=== PATIENT | male | born 1955 | race Caucasian/White ===

== ENCOUNTER 2016-11-11 02:28 | Inpatient (IN) | payer OTHER, MEDICARE ==
[2016-11-11 05:08] LABS: ABSOLUTE BASOPHILS # (AUTO) 0.1 10^3/uL (0.0-0.2); ABSOLUTE EOSINOPHILS # (AUTO) 0.1 10^3/uL (0.0-0.6); ABSOLUTE LYMPHOCYTES (AUTO) 0.6 10^3/uL (0.5-4.7); ABSOLUTE MONOCYTES (AUTO) 0.5 10^3/uL (0.1-1.4); ABSOLUTE NEUT (AUTO) 3.9 10^3/uL (1.7-8.2); BASOPHILS % (AUTO) 1.4 % (0-2); EOSINOPHILS % (AUTO) 2.5 % (0-6); HEMATOCRIT 40.4 % (37.9-51.0); HEMOGLOBIN 14.1 g/dL (13.5-17.0); HGB HCT DIFFERENCE 1.9; LYMPHOCYTES % (AUTO) 12.3 % (13-45); MEAN CORPUSCULAR HEMOGLOBIN 32.7 pg (27.0-33.4); MEAN CORPUSCULAR HGB CONC 34.9 g/dL (32.0-36.0); MEAN CORPUSCULAR VOLUME 94 fl (80-97); MONOCYTES % (AUTO) 9.7 % (3-13); RED BLOOD COUNT 4.31 10^6/uL (4.35-5.55); SEGMENTED NEUTROPHILS % (AUTO) 74.1 % (42-78); WHITE BLOOD COUNT 5.3 10^3/uL (4.0-10.5)
[2016-11-11 05:09] LABS: PROTHROMBIN TIME 16.7 SEC (11.4-15.4)
[2016-11-11 05:11] LABS: APPEARANCE,URINE SLIGHTLY-CLOUDY; BILIRUBIN,URINE NEGATIVE (NEGATIVE); GLUCOSE, URINE NEGATIVE (NEGATIVE); KETONES,URINE NEGATIVE (NEGATIVE); LEUKOCYTE ESTERASE,URINE NEGATIVE (NEGATIVE); NITRITE,URINE NEGATIVE (NEGATIVE); PROTEIN,URINE >=500 mg/dL (NEGATIVE); URINE SPECIFIC GRAVITY 1.025
--- NOTE | 2016-11-11 05:20 | ER Document Report ---
Doctor's Note Notes: 11/11/16 05:19 I performed a quick triage evaluation the patient. Patient presents with complaint of edema in his legs, confusion, some pain in his side. Patient was resubmitted for these complaints because of end-stage liver disease and altered mental status. At that time patient was given thiamine and Lasix. He was starting to improve. Patient and signed out AGAINST MEDICAL ADVICE. Patient said he did drink alcohol again when he first got home. Is not drinking 2 days. No fevers. No other complaints at this time. Patient says that his heart started racing this morning and to start a more confused and therefore came back to the ER. On exam patient has a lot of edema in his lower extremities which she says has increased since leaving the hospital. Patient obviously has some confusion about exact dates. His family members at bedside is able to clarify certain things and also says that his confusion has worsened. She says it's been no recent trauma since leaving the hospital. No recent falls or injuries. Nothing since leaving the hospital. At this time I' ll order ammonia level, baseline labs, give him some thiamine, given some Lasix , and placement cardiac tech until the morning ER physician can come in and take over the case.
[2016-11-11 05:22] LABS: ALANINE AMINOTRANSFERASE 73 U/L (21-72); ALBUMIN 2.3 g/dL (3.5-5.0); ALKALINE PHOSPHATASE 236 U/L (38-126); ANION GAP 8 (5-19); ASPARTATE AMINO TRANSFERASE 129 U/L (17-59); BILIRUBIN,TOTAL 1.6 mg/dL (0.2-1.3); BLOOD UREA NITROGEN 18 mg/dL (7-20); CARBON DIOXIDE 26 mmol/L (22-30); CHLORIDE 107 mmol/L (98-107); CREATININE RESULT 0.55 mg/dL (0.52-1.25); GLUCOSE 106 mg/dL (75-110); POTASSIUM 3.6 mmol/L (3.6-5.0); SODIUM 141.4 mmol/L (137-145); TOTAL PROTEIN 7.2 g/dL (6.3-8.2)
[2016-11-11] MEDS ORDERED: FUROSEMIDE INJ/PF 20 MG/2 ML SDV IV ONE (05:24)
[2016-11-11] MEDS ORDERED: FOLIC ACID INJ 5 MG/1 ML 10 ML VIAL IV ONE (05:24)
[2016-11-11] MEDS ORDERED: THIAMINE HCL 100 MG in NORMAL SALINE 50 ML IV ONE (05:24)
[2016-11-11 05:25] LABS: ALCOHOL < 10 mg/dL (NONE DETECTED)
[2016-11-11] MEDS ORDERED: FENTANYL CITRATE INJ/PF 100 MCG/2 ML AMPUL IV ONE (05:25)
[2016-11-11] MEDS ORDERED: MULTIVITAMIN TABLET PO ONE (05:25)
[2016-11-11] MEDS ORDERED: THIAMINE HCL INJ 200 MG/2 ML VIAL ONE (05:45)
[2016-11-11 05:47] LABS: WBC,URINE 0-1 /HPF
[2016-11-11 05:48] LABS: BACTERIA,URINE 1+ /HPF
[2016-11-11] MEDS ORDERED: DILTIAZEM HCL/D5W 125 ML IV PRN (06:05)
[2016-11-11] MEDS ORDERED: DILTIAZEM HCL INJ 25 MG/5 ML VIAL IV ONE (06:05)
--- NOTE | 2016-11-11 07:12 | ER Document Report ---
ED General - General Chief Complaint: Abdominal Pain Stated Complaint: ABDOMINAL PAIN Mode of Arrival: Ambulatory Information source: Patient Notes: 61-year-old male history of hepatitis C congestive heart failure Severino bar who is just here and requests to be discharged from the hospital presents with complaints of further swelling confusion. Patient denies any fevers TRAVEL OUTSIDE OF THE [place] IN LAST 30 DAYS: No - HPI Onset: Other Onset/Duration: Persistent Quality of pain: Achy Severity: Mild Pain Level: 1 Associated symptoms: Other Exacerbated by: Denies Relieved by: Denies Similar symptoms previously: Yes Recently seen / treated by doctor: Yes - Related Data Allergies/Adverse Reactions: tramadol Allergy (Verified 11/07/16 04:46) Past Medical History - General Information source: Patient - Social History Smoking Status: Current Some Day Smoker Cigarette use (# per day): No Chew tobacco use (# tins/day): Yes Smoking Education Provided: No Frequency of alcohol use: None Drug Abuse: None Family History: CAD - Father, Malignancy - Mother Patient has suicidal ideation: No Patient has homicidal ideation: No - Past Medical History Cardiac Medical History: Reports: Hx Atrial Fibrillation Pulmonary Medical History: Reports: Hx Asthma, Hx COPD GI Medical History: Reports: Hx Cirrhosis, Hx Hepatitis - Hepatitis C Traumatic Medical History: Reports: Hx Fractures Infectious Medical History: Reports: Hx Hepatitis - Hepatitis C Past Surgical History: Reports: Hx Cholecystectomy, Hx Orthopedic Surgery - left foot/leg 2007 - Immunizations Immunizations up to date: Yes Hx Diphtheria, Pertussis, Tetanus Vaccination: No - unk Review of Systems - Review of Systems Notes: REVIEW OF SYSTEMS: CONSTITUTIONAL : Denies fever, chills, or sweats. Denies recent illness. EENT: Denies eye, ear, throat, or mouth pain or symptoms. Denies nasal or sinus congestion or discharge. Denies throat, tongue, or mouth swelling or difficulty swallowing. CARDIOVASCULAR: Admits shortness of breath RESPIRATORY: Denies cough, cold, or chest congestion. Denies shortness of breath, difficulty breathing, or wheezing. GASTROINTESTINAL: Admits to abdominal distention GENITOURINARY: Denies difficulty urinating, painful urination, burning, frequency, blood in urine, or discharge. MUSCULOSKELETAL: Admits to peripheral edema SKIN: Denies rash, lesions or sores. HEMATOLOGIC : Denies easy bruising or bleeding. LYMPHATIC: Denies swollen, enlarged glands. NEUROLOGICAL: Admits confusion PSYCHIATRIC: Denies anxiety or stress. Denies depression, suicidal ideation, or homicidal ideation. ALL OTHER SYSTEMS REVIEWED AND NEGATIVE. Dictation was performed using Y[employer] voice recognition software PHYSICAL EXAMINATION: GENERAL: Well-appearing, well-nourished and in no acute distress. HEAD: Atraumatic, normocephalic. EYES: Pupils equal round and reactive to light, extraocular movements intact, sclera anicteric, conjunctiva are normal. ENT: Nares patent, oropharynx clear without exudates. Moist mucous membranes. NECK: Normal range of motion, supple without lymphadenopathy LUNGS: Breath sounds clear to auscultation bilaterally and equal. No wheezes rales or rhonchi. HEART: Regular rate and rhythm without murmurs ABDOMEN: Soft, nontender, mildly distended abdomen. No guarding, no rebound. No masses appreciated. Musculoskeletal: +2 pitting edema bilateral lower extremities NEUROLOGICAL: Cranial nerves grossly intact. Normal speech, normal gait. Normal sensory, motor exams PSYCH: Normal mood, normal affect. SKIN: Warm, Dry, normal turgor, no rashes or lesions noted. Physical Exam - Vital signs Vitals: Temp Pulse Resp BP Pulse Ox 98.1 F 44 L 14 166/94 H 96 11/11/16 03:01 11/11/16 03:01 11/11/16 03:01 11/11/16 03:01 11/11/16 03:01 Course - Re-evaluation Re-evalutation: 11/11/16 07:14 I believe patient is having exacerbation of his congestive heart failure and ascites, he is noted to be in A. fib RVR and was given Cardizem. 11/11/16 08:21 Patient's lab work notes no acute abnormalities, chronic CHF and A. fib noted. Patient otherwise stable for admission on Cardizem drip - Vital Signs Vital signs: Temp Pulse Resp BP Pulse Ox 97.5 F 44 L 15 145/83 H 96 11/11/16 07:37 11/11/16 03:01 11/11/16 07:01 11/11/16 07:01 11/11/16 07:01 - Laboratory Result Diagrams: 11/11/16 04:46 11/11/16 04:46 Laboratory results interpreted by me: 11/11/16 11/11/16 11/11/16 04:46 04:46 04:46 RBC 4.31 L Plt Count 103 L Lymphocytes % 12.3 L PT 16.7 H Calcium 8.0 L Total Bilirubin 1.6 H AST 129 H ALT 73 H Alkaline Phosphatase 236 H Albumin 2.3 L Urine Protein Urine Blood Urine Urobilinogen Urine Ascorbic Acid 11/11/16 04:46 RBC Plt Count Lymphocytes % PT Calcium Total Bilirubin AST ALT Alkaline Phosphatase Albumin Urine Protein >=500 H Urine Blood LARGE H Urine Urobilinogen 2.0 H Urine Ascorbic Acid 40 H - Diagnostic Test Radiology reviewed: Image reviewed, Reports reviewed - EKG Interpretation by Ok EKG shows normal: Sinus rhythm, Intervals, QRS Complexes Rate: Tachycardia Rhythm: A.Fib Critical Care Note - Critical Care Note Total time excluding time spent on procedures (mins): 40 Comments: 40 minutes of critical care time spent in direct contact evaluating and reevaluating the patient, treating symptoms, reviewing labs and studies and speaking with family and consultants excluding any procedures Discharge - Discharge Clinical Impression: Atrial fibrillation with RVR, Alcohol abuse, Encephalopathy A-fib Qualifiers: Atrial fibrillation type: chronic Qualified Code(s): I48.2 - Chronic atrial fibrillation COPD (chronic obstructive pulmonary disease) Qualifiers: COPD type: COPD with acute exacerbation Qualified Code(s): J44.1 - Chronic obstructive pulmonary disease with (acute) exacerbation Cirrhosis Qualifiers: Hepatic cirrhosis type: alcoholic cirrhosis Ascites presence: with ascites Qualified Code(s): K70.31 - Alcoholic cirrhosis of liver with ascites Hepatitis C Qualifiers: Viral hepatitis chronicity: chronic Hepatic coma status: without hepatic coma Qualified Code(s): B18.2 - Chronic viral hepatitis C CHF (congestive heart failure) Qualifiers: Congestive heart failure type: systolic Congestive heart failure chronicity: acute on chronic Qualified Code(s): I50.23 - Acute on chronic systolic ( congestive) heart failure Condition: Stable Disposition: ADMITTED INPATIENT Admitting Provider: Hospitalist Unit Admitted: [facility]
[2016-11-11] MEDS ORDERED: POTASSIUM CHLORIDE 10 MEQ TABLET.SA PO ONE (09:15)
[2016-11-11] MEDS ORDERED: METOPROLOL SUCCINATE 25 MG TAB.SR.24H PO ONE (09:17)
[2016-11-11] MEDS ORDERED: DIAZEPAM 5 MG TABLET PO ONE (09:18)
[2016-11-11] MEDS ORDERED: IPRATROPIUM/ALBUTEROL 0.5-2.5 MG/3 ML AMPUL NEB PRN (09:20)
[2016-11-11] MEDS ORDERED: ONDANSETRON 4 MG TAB.RAPDIS PO PRN (09:20)
[2016-11-11] MEDS ORDERED: DIAZEPAM 5 MG TABLET ONE (09:29)
[2016-11-11] MEDS ORDERED: FUROSEMIDE INJ/PF 40 MG/4 ML SDV IV ONE (09:40)
[2016-11-11] MEDS ORDERED: FOLIC ACID 1 MG TABLET PO ONE (09:40)
[2016-11-11] MEDS ORDERED: THIAMINE HCL 100 MG TABLET PO ONE (09:40)
[2016-11-11] MEDS ORDERED: NICOTINE 14 MG/24 HR PATCH.TD24 TD PRN (09:48)
[2016-11-11] MEDS ORDERED: ENALAPRILAT DIHYDRATE INJ/PF 1.25 MG/1 ML SDV IV PRN (09:50)
--- NOTE | 2016-11-11 09:53 | PDOC H&P ---
History of Present Illness Admission Date/PCP: 11/11/16 08:34 History of Present Illness: YARI TAMAYO is a 61 year old male with a known history of hepatitis C, and alcoholic cirrhosis who was recently discharged on the . Patient believes he left AGAINST MEDICAL ADVICE. Patient reports that he's had increasing leg swelling since discharge and that his last drink was on the first. Patient reports last night he began having some palpitations and upon reading the symptoms of liver failure and heart failure decided to come to the emergency department. Patient normally drinks a 12 pack or more per day and occasional liquor. Patient also was recently hospitalized in [facility] for pneumococcal pneumonia. He reports he still has antibiotics left. Patient is found to be in A. fib with RVR with heart rate in the 180s. He is referred to hospital service for A. fib with RVR and acute on chronic congestive heart failure. Past Medical History Cardiac Medical History: Reports: Atrial Fibrillation Pulmonary Medical History: Reports: Asthma, Chronic Obstructive Pulmonary Disease (COPD) GI Medical History: Reports: Cirrhosis, Hepatitis - Hepatitis C Infectious Medical History: Reports: Hepatitis C Past Surgical History Past Surgical History: Reports: Cholecystectomy, Orthopedic Surgery - left foot/ leg 2008 Social History Smoking Status: Current Some Day Smoker Frequency of Alcohol Use: Heavy Hx Recreational Drug Use: No Hx Prescription Drug Abuse: No - Advance Directive Resuscitation Status: Do Not Resuscitate Surrogate healthcare decision maker:: Patient's designates Ana Cristina Bourgeois, significant other Still legally Family History Family History: CAD - Father, Malignancy - Mother Parental Family History Reviewed: Yes Children Family History Reviewed: Yes Sibling(s) Family History Reviewed.: Yes Medication/Allergy Home Medications: Famotidine [Pepcid 20 mg Tablet] 20 mg PO Q12 #60 tablet 11/08/16 Furosemide [Lasix 20 mg Tablet] 20 mg PO QAM #30 tablet 11/08/16 Lactulose [Cephulac Syrup 20 gm/30 ml Udcup] 20 gm PO BID 30 Days 11/08/16 Metoprolol Succinate [Toprol Xl 25 mg Tab.sr] 25 mg PO Q12 #60 tab.sr.24h Spironolactone [Aldactone 25 mg Tablet] 25 mg PO DAILY #30 tablet 11/08/16 Thiamine HCl [Thiamine 100 mg Tablet] 100 mg PO DAILY #30 tablet 11/08/16 Allergies/Adverse Reactions: tramadol Allergy (Verified 11/07/16 04:46) Review of Systems Constitutional: PRESENT: chills, fatigue, weakness, weight gain. ABSENT: fever( s), headache(s), weight loss Eyes: ABSENT: visual disturbances Ears: ABSENT: hearing changes Cardiovascular: PRESENT: dyspnea on exertion, edema, orthropnea, palpitations. ABSENT: chest pain Respiratory: PRESENT: sputum. ABSENT: cough, dyspnea, hemoptysis Gastrointestinal: ABSENT: abdominal pain, coffee ground emesis, constipation, diarrhea, dysphagia, heartburn, hematemesis, hematochezia, melena, nausea, vomiting Genitourinary: ABSENT: dysuria, hematuria Musculoskeletal: ABSENT: joint swelling Integumentary: ABSENT: rash, wounds Neurological: PRESENT: confusion - Occasional, lack of coordination. ABSENT: abnormal speech, dizziness, focal weakness, syncope Psychiatric: ABSENT: anxiety, depression, homidical ideation, suicidal ideation Endocrine: ABSENT: cold intolerance, heat intolerance, polydipsia, polyuria Hematologic/Lymphatic: PRESENT: easy bruising. ABSENT: easy bleeding Physical Exam Vital Signs: Temp Pulse Resp BP Pulse Ox 97.5 F 44 L 18 141/102 H 96 11/11/16 07:37 11/11/16 03:01 11/11/16 09:01 11/11/16 09:01 11/11/16 09:01 Intake & Output 11/10/16 11/11/16 11/12/16 06:59 06:59 06:59 Weight 90.1 kg General appearance: PRESENT: no acute distress, well-developed Head exam: PRESENT: atraumatic, normocephalic Eye exam: PRESENT: conjunctival injection, EOMI, PERRLA, scleral icterus - Slight. ABSENT: nystagmus, periorbital swelling Ear exam: PRESENT: normal external ear exam Mouth exam: PRESENT: moist, neck supple Neck exam: PRESENT: full ROM, JVD. ABSENT: lymphadenopathy, tracheal deviation Respiratory exam: PRESENT: crackles - Bilateral bases, decreased breath sounds - Diminished bases, symmetrical, unlabored. ABSENT: accessory muscle use, prolonged expiratory phas, rales, retraction, rhonchi, tachypnea, wheezes Cardiovascular exam: PRESENT: irregular rhythm, +S1, +S2, tachycardia. ABSENT: diastolic murmur, gallop, rubs, systolic murmur Pulses: PRESENT: normal carotid pulses, +1 pedal pulses bilateral Vascular exam: PRESENT: normal capillary refill GI/Abdominal exam: PRESENT: ascites, guarding - voluntary, hypoactive bowel sounds, organolmegaly, soft. ABSENT: firm, hernia, Loza's sign, rebound, rigid Rectal exam: PRESENT: deferred Extremities exam: PRESENT: clubbing, other - 4+ pitting edema. ABSENT: joint swelling Musculoskeletal exam: PRESENT: ambulatory Neurological exam: PRESENT: alert, awake, oriented to person, oriented to place , oriented to time, oriented to situation, CN II-XII grossly intact. ABSENT: motor sensory deficit Psychiatric exam: PRESENT: appropriate affect, normal mood. ABSENT: homicidal ideation, suicidal ideation Skin exam: PRESENT: dry, intact, warm. ABSENT: cyanosis, normal color - Hyperkeratosis and hyperpigmentation bilateral lower extremities, rash Results Laboratory Results: 11/11/16 11/11/16 11/11/16 04:46 04:46 04:46 WBC 5.3 Hgb 14.1 Hct 40.4 Plt Count 103 L Sodium 141.4 Potassium 3.6 Chloride 107 Carbon Dioxide 26 Anion Gap 8 BUN 18 Creatinine 0.55 Calcium 8.0 L Total Bilirubin 1.6 H AST 129 H ALT 73 H Alkaline Phosphatase 236 H Ammonia Total Protein 7.2 Albumin 2.3 L Lipase 282.0 Urine Color REBEL Urine Protein >=500 H Urine Blood LARGE H Urine Urobilinogen 2.0 H Ur Leukocyte Esterase NEGATIVE Urine RBC 1-5 Urine WBC 0-1 Urine Bacteria 1+ Hyaline Casts 1-5 Urine Ascorbic Acid 40 H Serum Alcohol < 10 11/11/16 05:08 WBC Hgb Hct Plt Count Sodium Potassium Chloride Carbon Dioxide Anion Gap BUN Creatinine Calcium Total Bilirubin AST ALT Alkaline Phosphatase Ammonia 21.5 Total Protein Albumin Lipase Urine Color Urine Protein Urine Blood Urine Urobilinogen Ur Leukocyte Esterase Urine RBC Urine WBC Urine Bacteria Hyaline Casts Urine Ascorbic Acid Serum Alcohol Assessment & Plan - Diagnosis (1) Atrial fibrillation with RVR Is this a current diagnosis for this admission?: YesPlan: Patient currently on Cardizem drip. Will give metoprolol. Likely secondary to alcohol withdrawal. Have considered PE however unlikely due to thrombocytopenia and auto anticoagulation. (2) Hypertensive emergency Is this a current diagnosis for this admission?: YesPlan: Administer enalapril when necessary systolic greater than 165. (3) Acute on chronic congestive heart failure Qualifiers: Congestive heart failure type: diastolic Qualified Code(s): I50.33 - Acute on chronic diastolic (congestive) heart failure Is this a current diagnosis for this admission?: YesPlan: We'll check to see if patient had outside echo performed. Place patient on metoprolol and Lasix and Aldactone. Will also place on small amount of lisinopril. Currently acute exacerbation secondary to noncompliance with diet and fluid restriction as well as hypertensive emergency secondary to acute alcohol withdrawal. Continue diuresis. (4) Alcohol withdrawal Qualifiers: Complication of substance-induced condition: uncomplicated Qualified Code(s): F10.230 - Alcohol dependence with withdrawal, uncomplicated Is this a current diagnosis for this admission?: YesPlan: We'll begin on scheduled Valium. Ativan for when necessary symptoms. Thiamine and folic acid. Will check a magnesium. Concern for arrhythmia continue to monitor on telemetry. (5) Alcohol abuse Is this a current diagnosis for this admission?: YesPlan: Patient reports his last drink was on the first. He reports he had 40 ounces of beer at that time. Thiamine, folic acid, multivitamin and continue to monitor electrolytes (6) COPD (chronic obstructive pulmonary disease) Qualifiers: COPD type: COPD with acute exacerbation Qualified Code(s): J44.1 - Chronic obstructive pulmonary disease with (acute) exacerbation Is this a current diagnosis for this admission?: YesPlan: When necessary breathing treatments (7) Cirrhosis Qualifiers: Hepatic cirrhosis type: alcoholic cirrhosis Ascites presence: with ascites Qualified Code(s): K70.31 - Alcoholic cirrhosis of liver with ascites Is this a current diagnosis for this admission?: YesPlan: Continue metoprolol, Lasix, and Aldactone. Have advised patient to be abstinent from alcohol. (8) Hepatitis C Qualifiers: Viral hepatitis chronicity: chronic Hepatic coma status: without hepatic coma Qualified Code(s): B18.2 - Chronic viral hepatitis C Is this a current diagnosis for this admission?: Yes (9) Tobacco abuse Is this a current diagnosis for this admission?: YesPlan: Advised to stop. Offered nicotine replacement. - Time Time Spent: 50 to 70 Minutes Smoking Cessation Education: 3 to 10 minutes Medications reviewed and adjusted accordingly: Yes Anticipated discharge: Home Within: within 72 hours - Inpatient Certification Based on my medical assessment, after consideration of the patient's comorbidities, presenting symptoms, or acuity I expect that the services needed warrant INPATIENT care.: Yes I certify that my determination is in accordance with my understanding of Medicare's requirements for reasonable and necessary INPATIENT services [42 CFR 412.3e].: Yes Medical Necessity: Significant Comorbidiites Make Outpatient Treatment Too Risky , Need Close Monitoring Due to Risk of Patient Decompensation, Need For Continuous Telemetry Monitoring Post Hospital Care: D/C Gas Regulator Repairer Documentation
[2016-11-11] MEDS ORDERED: METOPROLOL SUCCINATE 25 MG TAB.SR.24H PO SCH (10:00)
[2016-11-11] MEDS ORDERED: THIAMINE HCL 100 MG TABLET PO SCH (10:00)
--- NOTE | 2016-11-11 10:11 | EKG REPORT ---
SEVERITY:- ABNORMAL ECG - ATRIAL FIBRILLATION, V-RATE 106-170 NONSPECIFIC T ABNORMALITIES, LATERAL LEADS BORDERLINE PROLONGED QT INTERVAL : Confirmed by: Maik Moore 11-Nov-2016 10:10:29
[2016-11-11] MEDS: SPIRONOLACTONE 25 MG TABLET PO SCH (11:49)
[2016-11-11] MEDS: FAMOTIDINE 20 MG TABLET PO SCH ×2 (11:51→21:47)
[2016-11-11] MEDS: LISINOPRIL 10 MG TABLET PO SCH (11:52)
[2016-11-11] MEDS: LEVOFLOXACIN 500 MG TABLET PO SCH (11:53)
[2016-11-11] MEDS: FUROSEMIDE 20 MG TABLET PO SCH (11:53)
[2016-11-11] MEDS: LACTULOSE SYRUP 20 GM/30 ML UDCUP PO SCH ×2 (11:54→17:30)
[2016-11-11] MEDS: DIAZEPAM 5 MG TABLET PO SCH ×3 (14:11→21:46)
[2016-11-11] MEDS ORDERED: METOPROLOL TARTRATE PF/INJ 5 MG/5 ML SDV IV PRN (14:13)
[2016-11-11] MEDS: IBUPROFEN 600 MG TABLET PO PRN (20:08)
[2016-11-11] MEDS: METOPROLOL SUCCINATE 25 MG TAB.SR.24H PO SCH (21:45)
[2016-11-12] MEDS: DIAZEPAM 5 MG TABLET PO SCH ×6 (00:05→17:04)
[2016-11-12] MEDS: LORAZEPAM INJ 2 MG/1 ML VIAL IV PRN ×5 (00:34→21:17)
[2016-11-12 05:54] LABS: ALANINE AMINOTRANSFERASE 61 U/L (21-72); ALBUMIN 2.1 g/dL (3.5-5.0); ALKALINE PHOSPHATASE 196 U/L (38-126); ANION GAP 5 (5-19); ASPARTATE AMINO TRANSFERASE 88 U/L (17-59); BILIRUBIN,TOTAL 1.5 mg/dL (0.2-1.3); BLOOD UREA NITROGEN 16 mg/dL (7-20); CALCIUM 8.1 mg/dL (8.4-10.2); CARBON DIOXIDE 27 mmol/L (22-30); CHLORIDE 107 mmol/L (98-107); CREATININE RESULT 0.68 mg/dL (0.52-1.25); GLUCOSE 96 mg/dL (75-110); MAGNESIUM 1.7 mg/dL (1.6-2.3); POTASSIUM 4.2 mmol/L (3.6-5.0); SODIUM 139.3 mmol/L (137-145); TOTAL PROTEIN 6.3 g/dL (6.3-8.2)
[2016-11-12 06:03] LABS: ABSOLUTE EOSINOPHILS # (AUTO) 0.3 10^3/uL (0.0-0.6); ABSOLUTE LYMPHOCYTES (AUTO) 0.8 10^3/uL (0.5-4.7); ABSOLUTE MONOCYTES (AUTO) 0.6 10^3/uL (0.1-1.4); ABSOLUTE NEUT (AUTO) 2.8 10^3/uL (1.7-8.2); BASOPHILS % (AUTO) 0.9 % (0-2); EOSINOPHILS % (AUTO) 5.9 % (0-6); HEMATOCRIT 36.4 % (37.9-51.0); HEMOGLOBIN 12.7 g/dL (13.5-17.0); HGB HCT DIFFERENCE 1.7; LYMPHOCYTES % (AUTO) 17.7 % (13-45); MEAN CORPUSCULAR HEMOGLOBIN 32.9 pg (27.0-33.4); MEAN CORPUSCULAR VOLUME 94 fl (80-97); MONOCYTES % (AUTO) 13.8 % (3-13); RED BLOOD COUNT 3.87 10^6/uL (4.35-5.55); RED CELL DISTRIBUTION WIDTH 13.8 % (11.5-14.0); SEGMENTED NEUTROPHILS % (AUTO) 61.7 % (42-78); WHITE BLOOD COUNT 4.6 10^3/uL (4.0-10.5)
[2016-11-12] MEDS: LACTULOSE SYRUP 20 GM/30 ML UDCUP PO SCH ×2 (09:18→17:03)
[2016-11-12] MEDS: THIAMINE HCL 100 MG TABLET PO SCH (09:20)
[2016-11-12] MEDS: LEVOFLOXACIN 500 MG TABLET PO SCH (09:20)
[2016-11-12] MEDS: METOPROLOL SUCCINATE 25 MG TAB.SR.24H PO SCH ×2 (09:21→21:20)
[2016-11-12] MEDS: FOLIC ACID 1 MG TABLET PO SCH (09:23)
[2016-11-12] MEDS: IBUPROFEN 600 MG TABLET PO PRN (09:23)
[2016-11-12] MEDS: LISINOPRIL 10 MG TABLET PO SCH (09:23)
[2016-11-12] MEDS: FUROSEMIDE 20 MG TABLET PO SCH (09:24)
[2016-11-12] MEDS: SPIRONOLACTONE 25 MG TABLET PO SCH (09:24)
[2016-11-12] MEDS: FAMOTIDINE 20 MG TABLET PO SCH ×2 (09:25→21:19)
[2016-11-12] MEDS ORDERED: FUROSEMIDE INJ/PF 20 MG/2 ML SDV IV ONE (20:30)
--- NOTE | 2016-11-12 21:00 | PDOC PROGRESS REPORT ---
Subjective Progress Note for:: 11/12/16 Subjective:: Nursing reports that patient continues to be somewhat confused. And he is somnolent but arousable when I visited him. Patient denies chest pain, shortness of breath, abdominal pain, nausea, vomiting , fevers, chills, diarrhea, constipation, headache, new onset weakness. Physical Exam Vital Signs: Temp Pulse Resp BP Pulse Ox 97.9 F 99 16 128/82 H 95 11/12/16 03:11 11/12/16 03:11 11/12/16 03:11 11/12/16 03:11 11/12/16 01:02 Intake & Output 11/11/16 11/12/16 11/13/16 06:59 06:59 06:59 Intake Total 2281 Output Total 1750 Balance 531 Weight 106.7 kg Exam: General: Somnolent but arousable, answers questions appropriately, no acute respiratory distress HEENT: AT/NC, PERRL, EOMI, oropharynx is moist, pink, no scleral icterus, no conjunctival injection Neck: + JVD, trachea midline Chest: Diminished bases bilaterally CV: IRR, normal S1 and S2, no rub, or gallop Abdomen: Soft, nontender to palpation, distended, active bowel sounds; no rebound, rigidity, or guarding, + fluid wave,+organomegaly Extremities: No cyanosis, clubbing, +3edema Neuro: Cranial nerves II through XII are grossly intact without focal deficits Results Laboratory Results: 11/12/16 05:18 11/12/16 05:18 11/12/16 11/12/16 05:18 05:18 WBC 4.6 RBC 3.87 L Hgb 12.7 L Hct 36.4 L MCV 94 MCH 32.9 MCHC 35.0 RDW 13.8 Plt Count 95 L Seg Neutrophils % 61.7 Lymphocytes % 17.7 Monocytes % 13.8 H Eosinophils % 5.9 Basophils % 0.9 Absolute Neutrophils 2.8 Absolute Lymphocytes 0.8 Absolute Monocytes 0.6 Absolute Eosinophils 0.3 Absolute Basophils 0.0 Sodium 139.3 Potassium 4.2 Chloride 107 Carbon Dioxide 27 Anion Gap 5 BUN 16 Creatinine 0.68 Est GFR ( Amer) > 60 Est GFR (Non-Af Amer) > 60 Glucose 96 Calcium 8.1 L Magnesium 1.7 Total Bilirubin 1.5 H AST 88 H ALT 61 Alkaline Phosphatase 196 H Total Protein 6.3 Albumin 2.1 L 11/11/16 11/11/16 11/11/16 09:58 16:00 21:50 Troponin I 0.035 0.054 0.042 Assessment & Plan - Diagnosis (1) Atrial fibrillation with RVR Is this a current diagnosis for this admission?: YesPlan: Patient currently rate controlled on increased metoprolol. Likely secondary to alcohol withdrawal. Have considered PE however unlikely due to thrombocytopenia and auto anticoagulation. (2) Hypertensive emergency Is this a current diagnosis for this admission?: YesPlan: Administer enalapril when necessary systolic greater than 165. Secondary to alcohol withdrawal. (3) Acute on chronic congestive heart failure Qualifiers: Congestive heart failure type: diastolic Qualified Code(s): I50.33 - Acute on chronic diastolic (congestive) heart failure Is this a current diagnosis for this admission?: YesPlan: We'll check to see if patient had outside echo performed. Place patient on metoprolol and Lasix and Aldactone. Will also place on small amount of lisinopril. Currently acute exacerbation secondary to noncompliance with diet and fluid restriction as well as hypertensive emergency secondary to acute alcohol withdrawal. Continue diuresis. (4) Alcohol withdrawal Qualifiers: Complication of substance-induced condition: uncomplicated Qualified Code(s): F10.230 - Alcohol dependence with withdrawal, uncomplicated Is this a current diagnosis for this admission?: YesPlan: Decrease scheduled Valium. Ativan for when necessary symptoms. Thiamine and folic acid. Patient reports last drink was on the . Concern for arrhythmia continue to monitor on telemetry. (5) Alcohol abuse Is this a current diagnosis for this admission?: Yes (6) COPD (chronic obstructive pulmonary disease) Qualifiers: COPD type: COPD with acute exacerbation Qualified Code(s): J44.1 - Chronic obstructive pulmonary disease with (acute) exacerbation Is this a current diagnosis for this admission?: Yes (7) Cirrhosis Qualifiers: Hepatic cirrhosis type: alcoholic cirrhosis Ascites presence: with ascites Qualified Code(s): K70.31 - Alcoholic cirrhosis of liver with ascites Is this a current diagnosis for this admission?: YesPlan: Continue metoprolol, Lasix, and Aldactone. Have advised patient to be abstinent from alcohol. (8) Hepatitis C Qualifiers: Viral hepatitis chronicity: chronic Hepatic coma status: without hepatic coma Qualified Code(s): B18.2 - Chronic viral hepatitis C Is this a current diagnosis for this admission?: Yes (9) Tobacco abuse Is this a current diagnosis for this admission?: Yes - Time Time Spent with patient: 25-34 minutes Medications reviewed and adjusted accordingly: Yes Anticipated discharge: Home Within: within 72 hours
[2016-11-13] MEDS: LORAZEPAM INJ 2 MG/1 ML VIAL IV PRN ×3 (00:55→21:30)
[2016-11-13] MEDS ORDERED: LORAZEPAM INJ 2 MG/1 ML VIAL ONE (01:35)
[2016-11-13] MEDS ORDERED: LORAZEPAM INJ 2 MG/1 ML VIAL IV ONE (02:00)
[2016-11-13] MEDS: DIAZEPAM 5 MG TABLET PO SCH ×5 (05:47→21:30)
[2016-11-13 06:24] LABS: ALANINE AMINOTRANSFERASE 68 U/L (21-72); ALBUMIN 1.8 g/dL (3.5-5.0); ALKALINE PHOSPHATASE 236 U/L (38-126); ASPARTATE AMINO TRANSFERASE 89 U/L (17-59); BILIRUBIN,TOTAL 1.6 mg/dL (0.2-1.3); BLOOD UREA NITROGEN 14 mg/dL (7-20); CALCIUM 8.1 mg/dL (8.4-10.2); CARBON DIOXIDE 29 mmol/L (22-30); CHLORIDE 106 mmol/L (98-107); CREATININE RESULT 0.59 mg/dL (0.52-1.25); GLUCOSE 82 mg/dL (75-110); MAGNESIUM 1.6 mg/dL (1.6-2.3); POTASSIUM 3.9 mmol/L (3.6-5.0); SODIUM 139.1 mmol/L (137-145)
[2016-11-13 06:26] LABS: ANION GAP 4 (5-19)
[2016-11-13 06:27] LABS: ABSOLUTE EOSINOPHILS # (AUTO) 0.2 10^3/uL (0.0-0.6); ABSOLUTE LYMPHOCYTES (AUTO) 0.6 10^3/uL (0.5-4.7); ABSOLUTE MONOCYTES (AUTO) 0.5 10^3/uL (0.1-1.4); BASOPHILS % (AUTO) 1.5 % (0-2); EOSINOPHILS % (AUTO) 4.7 % (0-6); HEMATOCRIT 38.7 % (37.9-51.0); HEMOGLOBIN 13.2 g/dL (13.5-17.0); HGB HCT DIFFERENCE 0.9; LYMPHOCYTES % (AUTO) 19.4 % (13-45); MEAN CORPUSCULAR HEMOGLOBIN 32.4 pg (27.0-33.4); MEAN CORPUSCULAR HGB CONC 34.2 g/dL (32.0-36.0); MEAN CORPUSCULAR VOLUME 95 fl (80-97); MONOCYTES % (AUTO) 13.7 % (3-13); RED BLOOD COUNT 4.08 10^6/uL (4.35-5.55); SEGMENTED NEUTROPHILS % (AUTO) 60.7 % (42-78); WHITE BLOOD COUNT 3.3 10^3/uL (4.0-10.5)
[2016-11-13] MEDS ORDERED: FUROSEMIDE 20 MG TABLET PO SCH (10:00)
[2016-11-13] MEDS: SPIRONOLACTONE 25 MG TABLET PO SCH (10:21)
[2016-11-13] MEDS: METOPROLOL SUCCINATE 25 MG TAB.SR.24H PO SCH (10:21)
[2016-11-13] MEDS: LISINOPRIL 10 MG TABLET PO SCH (10:22)
[2016-11-13] MEDS: FOLIC ACID 1 MG TABLET PO SCH (10:23)
[2016-11-13] MEDS: FAMOTIDINE 20 MG TABLET PO SCH ×2 (10:23→21:29)
[2016-11-13] MEDS: LEVOFLOXACIN 500 MG TABLET PO SCH (10:23)
[2016-11-13] MEDS: THIAMINE HCL 100 MG TABLET PO SCH (10:23)
[2016-11-13] MEDS: MAGNESIUM OXIDE 400 MG TABLET PO SCH ×3 (10:23→17:25)
[2016-11-13] MEDS: LACTULOSE SYRUP 20 GM/30 ML UDCUP PO SCH ×2 (10:24→17:25)
--- NOTE | 2016-11-13 11:13 | Physician Advisory Note ---
Physician Advisor ProgressNote .: Pursuant to the plan for [facility], I have reviewed the medical record for this patient. Physician Advisor Statement: Possible documentation opportunities if attending agrees: 1. To support dx of hypertensive emergency, please document: (A) the BPs that were above 170-180/110-120 (VS section documents max diastolic 116 [once], w/max systolic 166), & (B) the signs/sx caused by the severe HTN [?the acute on chr diast CHF?] - If pt actually doesn't have both of these criteria, please document if this dx was ruled out. 2. "suspected protein-calorie malnutrition [state mild, mod, or severe] with very low BUN of 4, albumin level of 1.8, , anemia, BMI 33, ____[?wt loss, ? appetite loss, ]" [if possible, give specifics on intake, wt loss, loss of SQ fat & muscle mass, diminished hand press tool maker strength, & clinical importance such as (A) nutritional assessment ordered, (B) modified diet or supplements ordered, (C) additional labs ordered, (D) prolonged wound healing time, (E) delayed infxn clearance] - - - Auditors are strict about the dx of malnutrition - has to be explicitly spelled out. Complex pt! Thanks for your help with documentation accuracy/specificity improvement! Farrah Magallanes MD
[2016-11-13] MEDS ORDERED: FUROSEMIDE 40 MG TABLET PO SCH (18:00)
--- NOTE | 2016-11-13 18:09 | PDOC PROGRESS REPORT ---
Subjective Progress Note for:: 11/13/16 Subjective:: Patient required additional Ativan overnight.Patient denies chest pain, shortness of breath, abdominal pain, nausea, vomiting, fevers, chills, diarrhea , constipation, headache, new onset weakness. Patient does continue to have some cough. Patient also sleeps during falls asleep during interview but asks for pain medication. Physical Exam Vital Signs: Temp Pulse Resp BP Pulse Ox 97.5 F 96 20 129/80 H 99 11/13/16 03:01 11/13/16 03:01 11/13/16 03:01 11/13/16 03:01 11/13/16 03:01 Intake & Output 11/12/16 11/13/16 11/14/16 06:59 06:59 06:59 Intake Total 2281 1300 Output Total 1750 1200 Balance 531 100 Weight 106.7 kg 107.3 kg Exam: General: answers questions appropriately, no acute respiratory distress HEENT: AT/NC, PERRL, EOMI, oropharynx is moist, pink, mild scleral icterus, no conjunctival injection Neck: + JVD, trachea midline Chest: Crackles bilaterally CV: IRR, normal S1 and S2, no rub, or gallop Abdomen: Soft, nontender to palpation, distended, active bowel sounds; no rebound, rigidity, or guarding, + fluid wave,+organomegaly Extremities: No cyanosis, clubbing, +3edema Neuro: Cranial nerves II through XII are grossly intact without focal deficits Results Laboratory Results: 11/13/16 05:25 11/13/16 05:25 11/13/16 11/13/16 05:25 05:25 WBC 3.3 L RBC 4.08 L Hgb 13.2 L Hct 38.7 MCV 95 MCH 32.4 MCHC 34.2 RDW 14.0 Plt Count 77 L Seg Neutrophils % 60.7 Lymphocytes % 19.4 Monocytes % 13.7 H Eosinophils % 4.7 Basophils % 1.5 Absolute Neutrophils 2.0 Absolute Lymphocytes 0.6 Absolute Monocytes 0.5 Absolute Eosinophils 0.2 Absolute Basophils 0.0 Sodium 139.1 Potassium 3.9 Chloride 106 Carbon Dioxide 29 Anion Gap 4 L BUN 14 Creatinine 0.59 Est GFR ( Amer) > 60 Est GFR (Non-Af Amer) > 60 Glucose 82 Calcium 8.1 L Magnesium 1.6 Total Bilirubin 1.6 H AST 89 H ALT 68 Alkaline Phosphatase 236 H Total Protein 6.0 L Albumin 1.8 L 11/11/16 11/11/16 11/11/16 09:58 16:00 21:50 Creatine Kinase Troponin I 0.035 0.054 0.042 11/12/16 05:18 Creatine Kinase 35 L Troponin I Assessment & Plan - Diagnosis (1) Atrial fibrillation with RVR Is this a current diagnosis for this admission?: YesPlan: Patient currently rate controlled on metoprolol. Will increase metoprolol slightly. (2) Hypertensive emergency Is this a current diagnosis for this admission?: YesPlan: Patient meets criteria as he has CHF and a diastolic greater than 110. Currently well-controlled (3) Acute on chronic congestive heart failure Qualifiers: Congestive heart failure type: diastolic Qualified Code(s): I50.33 - Acute on chronic diastolic (congestive) heart failure Is this a current diagnosis for this admission?: YesPlan: Secondary to hypertensive emergency and A. fib both of which were caused by his alcohol withdrawal and general medical noncompliance with diet and medication. Continue on lisinopril, metoprolol, and Lasix and Aldactone. Continues to be volume overloaded worsened by underlying liver failure. (4) Alcohol withdrawal Qualifiers: Complication of substance-induced condition: with delirium Qualified Code(s): F10.231 - Alcohol dependence with withdrawal delirium Is this a current diagnosis for this admission?: YesPlan: Review increase Valium back to 5 by mouth every 4, and continue when necessary Ativan. Continue thiamine and folic acid. Monitor for arrhythmia. Continue to monitor magnesium. (5) Alcohol abuse Is this a current diagnosis for this admission?: Yes (6) COPD (chronic obstructive pulmonary disease) Qualifiers: COPD type: COPD with acute exacerbation Qualified Code(s): J44.1 - Chronic obstructive pulmonary disease with (acute) exacerbation Is this a current diagnosis for this admission?: Yes (7) Cirrhosis Qualifiers: Hepatic cirrhosis type: alcoholic cirrhosis Ascites presence: with ascites Qualified Code(s): K70.31 - Alcoholic cirrhosis of liver with ascites Is this a current diagnosis for this admission?: Yes (8) Hepatitis C Qualifiers: Viral hepatitis chronicity: chronic Hepatic coma status: without hepatic coma Qualified Code(s): B18.2 - Chronic viral hepatitis C Is this a current diagnosis for this admission?: Yes (9) Tobacco abuse Is this a current diagnosis for this admission?: Yes (10) Obesity Qualifiers: Obesity type: unspecified obesity type Obesity severity: non-morbid Qualified Code(s): E66.9 - Obesity, unspecified Is this a current diagnosis for this admission?: Yes - Time Time Spent with patient: 25-34 minutes Medications reviewed and adjusted accordingly: Yes
[2016-11-13] MEDS: METOPROLOL SUCCINATE 50 MG TAB.SR.24H PO SCH (21:29)
[2016-11-13] MEDS: FUROSEMIDE INJ/PF 40 MG/4 ML SDV IV SCH (21:29)
[2016-11-14] MEDS: LACTULOSE SYRUP 20 GM/30 ML UDCUP PO SCH ×3 (00:15→11:13)
[2016-11-14] MEDS: DIAZEPAM 5 MG TABLET PO SCH ×4 (02:57→13:17)
[2016-11-14 05:33] LABS: PROTHROMBIN TIME 17.9 SEC (11.4-15.4)
[2016-11-14 05:38] LABS: ABSOLUTE BASOPHILS # (AUTO) 0.1 10^3/uL (0.0-0.2); ABSOLUTE EOSINOPHILS # (AUTO) 0.2 10^3/uL (0.0-0.6); ABSOLUTE LYMPHOCYTES (AUTO) 0.8 10^3/uL (0.5-4.7); ABSOLUTE MONOCYTES (AUTO) 0.7 10^3/uL (0.1-1.4); ABSOLUTE NEUT (AUTO) 2.7 10^3/uL (1.7-8.2); BASOPHILS % (AUTO) 1.8 % (0-2); EOSINOPHILS % (AUTO) 4.7 % (0-6); HEMATOCRIT 37.7 % (37.9-51.0); HEMOGLOBIN 13.3 g/dL (13.5-17.0); HGB HCT DIFFERENCE 2.2; LYMPHOCYTES % (AUTO) 18.4 % (13-45); MEAN CORPUSCULAR HGB CONC 35.3 g/dL (32.0-36.0); MEAN CORPUSCULAR VOLUME 93 fl (80-97); MONOCYTES % (AUTO) 14.7 % (3-13); RED BLOOD COUNT 4.04 10^6/uL (4.35-5.55); RED CELL DISTRIBUTION WIDTH 13.9 % (11.5-14.0); SEGMENTED NEUTROPHILS % (AUTO) 60.4 % (42-78); WHITE BLOOD COUNT 4.5 10^3/uL (4.0-10.5)
[2016-11-14] MEDS: FUROSEMIDE INJ/PF 40 MG/4 ML SDV IV SCH ×2 (05:51→13:17)
[2016-11-14 06:00] LABS: ANION GAP 7 (5-19); BLOOD UREA NITROGEN 14 mg/dL (7-20); CALCIUM 8.3 mg/dL (8.4-10.2); CARBON DIOXIDE 28 mmol/L (22-30); CHLORIDE 104 mmol/L (98-107); CREATININE RESULT 0.53 mg/dL (0.52-1.25); GLUCOSE 85 mg/dL (75-110); MAGNESIUM 1.6 mg/dL (1.6-2.3); POTASSIUM 3.7 mmol/L (3.6-5.0); SODIUM 138.5 mmol/L (137-145)
[2016-11-14] MEDS: LORAZEPAM INJ 2 MG/1 ML VIAL IV PRN (06:14)
[2016-11-14] MEDS: LEVOFLOXACIN 500 MG TABLET PO SCH (09:24)
[2016-11-14] MEDS: THIAMINE HCL 100 MG TABLET PO SCH (09:26)
[2016-11-14] MEDS: FOLIC ACID 1 MG TABLET PO SCH (09:26)
[2016-11-14] MEDS: FAMOTIDINE 20 MG TABLET PO SCH (09:26)
[2016-11-14] MEDS: LISINOPRIL 10 MG TABLET PO SCH (09:27)
[2016-11-14] MEDS: MAGNESIUM OXIDE 400 MG TABLET PO SCH ×2 (09:28→13:17)
[2016-11-14] MEDS: METOPROLOL SUCCINATE 50 MG TAB.SR.24H PO SCH (09:28)
[2016-11-14] MEDS ORDERED: SPIRONOLACTONE 25 MG TABLET PO SCH (10:00)
[2016-11-14 13:29] VITALS: BP 111/83
--- NOTE | 2016-11-15 15:10 | PDOC DISCHARGE SUMMARY ---
General - Admit/Disc Date/PCP Admission Date/Primary Care Provider: 11/11/16 09:20 Discharge Date: 11/15/16 - Discharge Diagnosis (1) Atrial fibrillation with RVR Is this a current diagnosis for this admission?: Yes (2) Hypertensive emergency Is this a current diagnosis for this admission?: Yes (3) Acute on chronic congestive heart failure Is this a current diagnosis for this admission?: Yes (4) Alcohol withdrawal Is this a current diagnosis for this admission?: Yes (5) Alcohol abuse Is this a current diagnosis for this admission?: Yes (6) COPD (chronic obstructive pulmonary disease) Is this a current diagnosis for this admission?: Yes (7) Cirrhosis Is this a current diagnosis for this admission?: Yes (8) Hepatitis C Is this a current diagnosis for this admission?: Yes (9) Tobacco abuse Is this a current diagnosis for this admission?: Yes (10) Obesity Is this a current diagnosis for this admission?: Yes - Additional Information Resuscitation Status: Do Not Resuscitate Discharge Diet: Cardiac Discharge Activity: Activity As Tolerated, Balance Activity w/Rest, Weigh Daily Home Medications: Famotidine [Pepcid 20 mg Tablet] 20 mg PO Q12 #60 tablet 11/08/16 Diazepam [Valium 5 mg Tablet] 5 mg PO Q6 #4 tablet 11/14/16 Folic Acid [Folvite 1 mg Tablet] 1 mg PO DAILY #90 tablet 11/14/16 Furosemide [Lasix 20 mg Tablet] 60 mg PO BID #120 tablet 11/14/16 Ipratropium/Albuterol Sulfate [Combivent Respimat 4 gm Mdi] 1 puff IH Q6 #1 aer.w.adap 11/14/16 Lactulose [Cephulac Syrup 20 gm/30 ml Udcup] 20 gm PO Q6 30 Days 11/14/16 Levofloxacin [Levaquin 500 mg Tablet] 500 mg PO DAILY tablet 11/14/16 Lisinopril [Prinivil 10 mg Tablet] 10 mg PO DAILY #30 tablet 11/14/16 Magnesium Oxide [Mag-Ox 400 mg Tablet] 800 mg PO TID #30 tablet 11/14/16 Metoprolol Succinate [Toprol Xl 50 mg Tab.sr] 50 mg PO Q12 #60 tab.sr.24h Nicotine [Nicoderm 14 mg/24 Hr Transdermal Patch] 1 each TD DAILYP PRN #30 patch.td24 11/14/16 Spironolactone [Aldactone 25 mg Tablet] 50 mg PO DAILY #60 tablet 11/14/16 Thiamine HCl [Thiamine 100 mg Tablet] 100 mg PO DAILY #30 tablet 11/14/16 History of Present Illness History of Present Illness: YARI TAMAYO is a 61 year old male with a known history of hepatitis C, and alcoholic cirrhosis who was recently discharged on the . Patient believes he left AGAINST MEDICAL ADVICE. Patient reports that he's had increasing leg swelling since discharge and that his last drink was on the first. Patient reports last night he began having some palpitations and upon reading the symptoms of liver failure and heart failure decided to come to the emergency department. Patient normally drinks a 12 pack or more per day and occasional liquor. Patient also was recently hospitalized in [facility] for pneumococcal pneumonia. He reports he still has antibiotics left. Patient is found to be in A. fib with RVR with heart rate in the 180s. He is referred to hospital service for A. fib with RVR and acute on chronic congestive heart failure. Hospital Course Hospital Course: Patient was found to be in acute congestive heart failure secondary to hypertensive emergency and A. fib with RVR both of which were precipitated by patient's alcohol withdrawal. Patient's A. fib with RVR was rapidly controlled initially with a diltiazem drip and ultimately by increasing his Toprol. In patients acute on chronic diastolic congestive heart failure was improved with aggressive diuresis and increasing his Lasix and spurlike turn. Patient did have moderate episodes of delirium and was found to need an increased amount of lactulose. Patient's last drink was on November 08. Patient plan return home with his significant other and hospice. Patient was stable for discharge and patient was strongly cautioned to not drink alcohol. Physical Exam Vital Signs: Temp Pulse Resp BP Pulse Ox 97.5 F 88 18 111/83 98 11/14/16 13:28 11/14/16 13:28 11/14/16 13:28 11/14/16 13:28 11/14/16 13:28 Intake & Output 11/14/16 11/15/16 11/16/16 06:59 06:59 06:59 Intake Total 744 240 Output Total 700 Balance 44 240 Weight 107.2 kg Exam: General: A+Ox2, answers questions intermittently appropriately, no acute respiratory distress HEENT: AT/NC, PERRL, EOMI, oropharynx is moist, pink, mild scleral icterus, no conjunctival injection Neck: + JVD, trachea midline Chest: Occasional rhonchi, clears with cough CV: IRR, normal S1 and S2, no rub, or gallop Abdomen: Soft, nontender to palpation, distended, active bowel sounds; no rebound, rigidity, or guarding, + mild fluid wave,+organomegaly Extremities: No cyanosis, clubbing, +2edema Neuro: Cranial nerves II through XII are grossly intact without focal deficits Results Laboratory Results: 11/14/16 05:11 11/14/16 05:11 11/11/16 11/11/16 11/11/16 09:58 16:00 21:50 Creatine Kinase Troponin I 0.035 0.054 0.042 11/12/16 05:18 Creatine Kinase 35 L Troponin I Qualifiers PATEINT BEING DISCHARGED WITH ANY OF THE FOLLOWING DIAGNOSIS?: Heart Failure HF Pt being discharged on ACEI for LVEF less than 40%?: No Reason(s) for not prescribing ACEI:: Not indicated - EF greater than 40, Hospice Care HF Pt being discharged on ARBS for LVEF less than 40%?: No Reason(s) for not prescribing ARBS:: Not indicated - EF greater than 40, Hospice Care HF Pt with Afib discharged with Warfarin?: No Reason(s) for not prescribing Warfarin:: Medical Contraindication - Thrombocytopenia and liver disease HF Pt discharged on evidence-based Beta [place]?: Yes
== END 2016-11-14 14:35 | disposition hospice, home (50) | DRG 308 ==
LOC: ER 02:28 → UNDOADMIN 08:34 → EH 08:34 → 3W 11:18
PROVIDERS: ADMIT Family Medicine; ATTEND Family Medicine
DX: I48.91 Unspecified atrial fibrillation (principal); I50.33 Acute on chronic diastolic (congestive) heart failure; F10.231 Alcohol dependence with withdrawal delirium; J44.1 Chronic obstructive pulmonary disease with (acute) exacerbation; I16.1 Hypertensive emergency; K70.31 Alcoholic cirrhosis of liver with ascites; B18.2 Chronic viral hepatitis C; E66.9 Obesity, unspecified; Z66 Do not resuscitate; Z79.899 Other long term (current) drug therapy; Z88.8 Allergy status to other drugs, medicaments and biological substances; Z90.49 Acquired absence of other specified parts of digestive tract; F17.220 Nicotine dependence, chewing tobacco, uncomplicated
CPT/HCPCS: 36415; 80048; 80053; 80307; 81001; 82140; 82550; 83690; 83735; 84484; 85025; 85610; 85730; 93005; 93010; 94799; 96374; 96375; 99291; J1940; J2060; J3010; J3490; J7620

== ENCOUNTER 2017-03-29 23:42 | Emergency (ER) | payer OTHER, MEDICARE ==
[2017-03-30] MEDS ORDERED: MAGNESIUM SULFATE/D5W 100 ML IV PRN (00:13)
[2017-03-30] MEDS ORDERED: METHYLPREDNISOLONE INJ 125 MG/2 ML SDV IV ONE (00:13)
--- NOTE | 2017-03-30 00:17 | ER Document Report ---
ED Respiratory Problem - General Chief Complaint: Shortness Of Breath Stated Complaint: TROUBLE BREATHING Time Seen by Provider: 03/30/17 00:07 Notes: Patient is a 61-year-old male that comes emergency department by EMS for chief complaint of cough with worsening difficulty breathing over the past 3 days, he reports painful cough across his chest, he denies fever or chills. He denies vomiting, abdominal pain, back pain. He is on oxygen as needed at home, he smokes, he has a history of COPD, afib, liver failure, hepatitis C. patient is on morphine pain medicine and has hospice arrangements with the [place]. TRAVEL OUTSIDE OF THE [place] IN LAST 30 DAYS: No - Related Data Allergies/Adverse Reactions: tramadol Allergy (Verified 11/07/16 04:46) Past Medical History - General Information source: Patient - Social History Smoking Status: Current Every Day Smoker Smoking Education Provided: Yes - <3 min Frequency of alcohol use: Occasional Drug Abuse: None Lives with: Friend Family History: CAD - Father, Malignancy - Mother - Past Medical History Cardiac Medical History: Reports: Hx Atrial Fibrillation Pulmonary Medical History: Reports: Hx Asthma, Hx COPD GI Medical History: Reports: Hx Cirrhosis, Hx Hepatitis - Hepatitis C Traumatic Medical History: Reports: Hx Fractures Infectious Medical History: Reports: Hx Hepatitis - Hepatitis C Past Surgical History: Reports: Hx Cholecystectomy, Hx Orthopedic Surgery - left foot/leg 2007 - Immunizations Immunizations up to date: Yes Hx Diphtheria, Pertussis, Tetanus Vaccination: No - unk Review of Systems - Review of Systems Constitutional: No symptoms reported EENT: No symptoms reported Cardiovascular: See HPI Respiratory: See HPI Gastrointestinal: No symptoms reported Genitourinary: No symptoms reported Male Genitourinary: No symptoms reported Musculoskeletal: No symptoms reported Skin: No symptoms reported Hematologic/Lymphatic: No symptoms reported Neurological/Psychological: No symptoms reported Physical Exam - Vital signs Vitals: Temp Pulse Resp BP Pulse Ox 98.7 F 108 H 28 H 154/95 H 94 03/29/17 23:50 03/29/17 23:50 03/29/17 23:50 03/29/17 23:50 03/29/17 23:50 Interpretation: Normal - General General appearance: Appears well, Alert In distress: None - HEENT Head: Normocephalic, Atraumatic Eyes: Normal Conjunctiva: Normal Extraocular movements intact: Yes Eyelashes: Normal Pupils: PERRL Sinus: Normal Nasal: Normal Mouth/Lips: Normal Mucous membranes: Normal Pharynx: Normal Neck: Normal - Respiratory Respiratory status: Tachypnea - mild. No: Respiratory distress, Labored Chest status: Nontender Breath sounds: Decreased air movement, Nonproductive cough, Rhonchi, Wheezing Chest palpation: Normal - Cardiovascular Rhythm: Irregularly irregular, Tachycardia Heart sounds: Normal auscultation Murmur: No - Abdominal Inspection: Normal Distension: No distension Bowel sounds: Normal Tenderness: Nontender. No: Tender, Guarding Organomegaly: No organomegaly - Back Back: Normal, Nontender. No: Tender - Extremities General upper extremity: Normal inspection, Nontender, Normal strength, Normal temperature General lower extremity: Normal inspection, Nontender, Normal strength, Normal temperature - Neurological Neuro grossly intact: Yes Cognition: Normal Orientation: AAOx4 Rawson Coma Scale Eye Opening: Spontaneous Rawson Coma Scale Verbal: Oriented Lynne Coma Scale Motor: Obeys Commands Rawson Coma Scale Total: 15 Speech: Normal Motor strength normal: LUE, RUE, LLE, RLE Sensory: Normal - Psychological Associated symptoms: Normal affect, Normal mood - Skin Skin Temperature: Warm Skin Moisture: Dry Skin Color: Normal Course - Re-evaluation Re-evalutation: EKG shows tachycardia with atrial fibrillation which has already been diagnosed , cardiac enzymes negative. Symptoms started 3 days ago. Patient with cough, rhonchi, few scattered wheezes on exam. Patient speaking in full sentences, has only mild tachypnea on examination. Mild leukocytosis at 13.8, no bandemia, no fever, chest x-ray shows left lower lobe pneumonia. Cultures placed, patient improved after magnesium and Solu- Medrol, tachycardia resolved, Levaquin given IV. Patient said he actually feels really good. Oxygen turned off, patient averaging 93-94% on room air. Patient ambulated without difficulty, oxygen saturation almost improved when walking. Patient stating he feels comfortable and he wants to go home. Patient will be treated with Levaquin, prednisone, patient has home hospice care, discussed return precautions, patient states understanding and agreement. Patient discussed with Dr. Mcgraw. - Vital Signs Vital signs: Temp Pulse Resp BP Pulse Ox 98.7 F 108 H 28 H 133/76 H 92 03/29/17 23:50 03/29/17 23:50 03/29/17 23:50 03/30/17 06:30 03/30/17 06:30 - Laboratory Result Diagrams: 03/30/17 00:10 03/30/17 00:10 Laboratory results interpreted by me: 03/30/17 03/30/17 00:10 00:10 WBC 13.0 H RDW 15.0 H Plt Count 93 L Seg Neutrophils % 81.2 H Lymphocytes % 7.4 L Absolute Neutrophils 10.6 H Sodium 134.1 L Glucose 119 H Total Bilirubin 3.7 H Direct Bilirubin 1.2 H AST 68 H Alkaline Phosphatase 167 H Creatine Kinase 50 L Albumin 2.9 L Discharge - Discharge Clinical Impression: Cough, Shortness of breath Pneumonia Qualifiers: Pneumonia type: due to unspecified organism Laterality: left Lung location: lower lobe of lung Qualified Code(s): J18.1 - Lobar pneumonia, unspecified organism Condition: Stable Disposition: HOME, SELF-CARE Additional Instructions: Workup is consistent with a left lower lobe pneumonia. Take the Levaquin and the prednisone as prescribed. Follow-up with your provider this week. Return to the emergency department for any concerning or worsening symptoms including difficulty breathing, developing fever, or any other concerning symptoms. Prescriptions: Levofloxacin [Levaquin 750 mg Tablet] 750 mg PO DAILY #5 tablet Prednisone [Deltasone 20 mg Tablet] 3 tab PO DAILY 5 Days
[2017-03-30 00:39] LABS: ABSOLUTE EOSINOPHILS # (AUTO) 0.1 10^3/uL (0.0-0.6); ABSOLUTE MONOCYTES (AUTO) 1.4 10^3/uL (0.1-1.4); ABSOLUTE NEUT (AUTO) 10.6 10^3/uL (1.7-8.2); ALANINE AMINOTRANSFERASE 48 U/L (21-72); ALBUMIN 2.9 g/dL (3.5-5.0); ALKALINE PHOSPHATASE 167 U/L (38-126); ANION GAP 5 (5-19); ASPARTATE AMINO TRANSFERASE 68 U/L (17-59); BASOPHILS % (AUTO) 0.2 % (0-2); BILIRUBIN,DIRECT 1.2 mg/dL (0.0-0.4); BILIRUBIN,TOTAL 3.7 mg/dL (0.2-1.3); BLOOD UREA NITROGEN 13 mg/dL (7-20); CALCIUM 8.4 mg/dL (8.4-10.2); CARBON DIOXIDE 27 mmol/L (22-30); CHLORIDE 102 mmol/L (98-107); CREATINE KINASE 50 U/L (55-170); EOSINOPHILS % (AUTO) 0.7 % (0-6); GLUCOSE 119 mg/dL (75-110); HEMATOCRIT 47.5 % (37.9-51.0); HEMOGLOBIN 16.4 g/dL (13.5-17.0); HGB HCT DIFFERENCE 1.7; LYMPHOCYTES % (AUTO) 7.4 % (13-45); MEAN CORPUSCULAR HEMOGLOBIN 31.7 pg (27.0-33.4); MEAN CORPUSCULAR HGB CONC 34.6 g/dL (32.0-36.0); MEAN CORPUSCULAR VOLUME 92 fl (80-97); MONOCYTES % (AUTO) 10.5 % (3-13); POTASSIUM 4.2 mmol/L (3.6-5.0); RED BLOOD COUNT 5.17 10^6/uL (4.35-5.55); SEGMENTED NEUTROPHILS % (AUTO) 81.2 % (42-78); SODIUM 134.1 mmol/L (137-145)
[2017-03-30 01:09] LABS: TROPONIN I < 0.012 ng/mL
[2017-03-30] MEDS ORDERED: LEVOFLOXACIN 750 MG/D5W RTU 150 ML IV ONE (02:31)
--- NOTE | 2017-03-30 08:58 | EKG REPORT ---
SEVERITY:- ABNORMAL ECG - ATRIAL FIBRILLATION, V-RATE 80-126 MULTIFORM VENTRICULAR PREMATURE COMPLEXES : Confirmed by: Cabrera Olguin MD 30-Mar-2017 08:57:51
[2017-03-30 09:29] VITALS: BP 154/88
== END 2017-03-30 09:30 | disposition home or self-care (01) ==
LOC: ER 23:42
DX: J18.1 Lobar pneumonia, unspecified organism (principal); R05 Cough; R06.02 Shortness of breath; J44.9 Chronic obstructive pulmonary disease, unspecified; I48.91 Unspecified atrial fibrillation; K72.90 Hepatic failure, unspecified without coma; B19.20 Unspecified viral hepatitis C without hepatic coma; F17.200 Nicotine dependence, unspecified, uncomplicated
CPT/HCPCS: 93005; 99285; 96375; 96365; 96366; 36415; 87040; 82553; 82550; 85025; 87077; 80053; 84484; 87186; 71010; 93010; J2930; J3475; J1956

== ENCOUNTER 2017-06-26 18:38 | Inpatient (IN) | payer OTHER, MEDICARE ==
[2017-06-26] MEDS ORDERED: NORMAL SALINE 1000 ML 1,000 ML IV PRN (19:00)
[2017-06-26] MEDS ORDERED: PIPERACILLIN/TAZOBACTAM 3.375 GM VIAL IV ONE (19:00)
[2017-06-26 19:28] LABS: HEMOGLOBIN 15.4 g/dL (13.5-17.0); HGB HCT DIFFERENCE 2.2; MEAN CORPUSCULAR HEMOGLOBIN 32.6 pg (27.0-33.4); MEAN CORPUSCULAR HGB CONC 35.1 g/dL (32.0-36.0); MEAN CORPUSCULAR VOLUME 93 fl (80-97); RED BLOOD COUNT 4.74 10^6/uL (4.35-5.55); RED CELL DISTRIBUTION WIDTH 14.4 % (11.5-14.0); WHITE BLOOD COUNT 9.7 10^3/uL (4.0-10.5)
[2017-06-26 19:30] LABS: VENOUS BLOOD BASE EXCESS 0.2 mmol/L; VENOUS BLOOD HCO3 25.3 mmol/L (20-32); VENOUS BLOOD PCO2 42.4 mmHg (35-63); VENOUS BLOOD PH 7.39 (7.30-7.42)
[2017-06-26 19:34] LABS: PARTIAL THROMBOPLASTIN TIME 31.7 SEC (23.5-35.8); PROTHROMBIN TIME 16.3 SEC (11.4-15.4)
[2017-06-26 19:48] LABS: BASOPHILS % (MANUAL) 0 % (0-2); EOSINOPHILS % (MANUAL) 3 % (0-6); LYMPHOCYTES % (MANUAL) 1 % (13-45); TOTAL CELLS COUNTED 100
[2017-06-26 19:49] LABS: ANISOCYTOSIS SLIGHT; POLYCHROMASIA 1+
--- NOTE | 2017-06-26 19:50 | RADIOLOGY REPORT (SQ) ---
EXAM DESCRIPTION: CHEST SINGLE VIEW COMPLETED DATE/TIME: 06/26/2017 7:11 pm REASON FOR STUDY: fever COMPARISON: 03/30/2017 EXAM PARAMETERS: NUMBER OF VIEWS: One view. TECHNIQUE: Single frontal radiographic view of the chest acquired. RADIATION DOSE: NA LIMITATIONS: None. FINDINGS: LUNGS AND PLEURA: Patchy airspace disease in the right lung base. No pleural effusion or pneumothorax identified. MEDIASTINUM AND HILAR STRUCTURES: Stable. HEART AND VASCULAR STRUCTURES: Stable. BONES: No acute findings. HARDWARE: None in the chest. OTHER: No other significant finding. IMPRESSION: Patchy airspace disease in the right lung base. TECHNICAL DOCUMENTATION: JOB ID: [id number]
[2017-06-26 19:51] LABS: ALANINE AMINOTRANSFERASE 51 U/L (21-72); ALBUMIN 1.4 g/dL (3.5-5.0); ALCOHOL 15 mg/dL (NONE DETECTED); ALKALINE PHOSPHATASE 123 U/L (38-126); ASPARTATE AMINO TRANSFERASE 73 U/L (17-59); BILIRUBIN,DIRECT 0.5 mg/dL (0.0-0.4); BILIRUBIN,TOTAL 1.8 mg/dL (0.2-1.3); BLOOD UREA NITROGEN 5 mg/dL (7-20); CREATINE KINASE 68 U/L (55-170); CREATININE RESULT 0.39 mg/dL (0.52-1.25); GLUCOSE 87 mg/dL (75-110); LIPASE 52.2 U/L (23-300); TOTAL PROTEIN 4.2 g/dL (6.3-8.2)
[2017-06-26 19:59] LABS: ANION GAP 5 (5-19); CARBON DIOXIDE 19 mmol/L (22-30); CHLORIDE 119 mmol/L (98-107); SODIUM 142.8 mmol/L (137-145)
[2017-06-26] MEDS ORDERED: IBUPROFEN 600 MG TABLET PO ONE (19:59)
[2017-06-26] MEDS ORDERED: VANCOMYCIN HCL INJ 1000 MG VIAL IV ONE (20:03)
--- NOTE | 2017-06-26 20:03 | ER Document Report ---
ED Fever - General Chief Complaint: Fever Stated Complaint: FEVER Time Seen by Provider: 06/26/17 18:52 Notes: The patient is a 61-year-old male, past medical history hep C, A. yosvany (on home Cardizem), Stage IV liver cancer, on home hospice, CHF, presents after he was having increased confusion and fever earlier today that was noticed by his home nurse. Patient is on chronic narcotics and somnolent, but he denies any pain at this time. Patient was given 975 mg Tylenol and 4 mg Zofran by EMS prior to arrival. He vomited his Cardizem this morning. According to EMS, his last known normal was this morning at 08:00. is not at bedside and unable to contact on multiple phone numbers listed. Denies nausea, vomiting, abdominal pain, cough, chest pain, shortness of breath, rash, diarrhea or constipation. TRAVEL OUTSIDE OF THE [place] IN LAST 30 DAYS: No - Related Data Allergies/Adverse Reactions: tramadol Allergy (Verified 11/07/16 04:46) Past Medical History - General Information source: Emergency Med Personnel - Social History Smoking Status: Current Every Day Smoker Chew tobacco use (# tins/day): No Frequency of alcohol use: None Drug Abuse: None Family History: CAD - Father, Malignancy - Mother - Past Medical History Cardiac Medical History: Reports: Hx Atrial Fibrillation Pulmonary Medical History: Reports: Hx Asthma, Hx COPD Renal/ Medical History: Denies: Hx Peritoneal Dialysis GI Medical History: Reports: Hx Cirrhosis, Hx Hepatitis - Hepatitis C Traumatic Medical History: Reports: Hx Fractures Infectious Medical History: Reports: Hx Hepatitis - Hepatitis C Past Surgical History: Reports: Hx Cholecystectomy, Hx Orthopedic Surgery - left foot/leg 2007 - Immunizations Immunizations up to date: Yes Hx Diphtheria, Pertussis, Tetanus Vaccination: No - unk Review of Systems - Review of Systems Notes: REVIEW OF SYSTEMS: CONSTITUTIONAL: +fevers, -chills EENT: -eye pain, -difficulty swallowing, -nasal congestion CARDIOVASCULAR:-chest pain, -syncope. RESPIRATORY: -cough, -SOB GASTROINTESTINAL: -abdominal pain, - nausea, -vomiting, -diarrhea GENITOURINARY: -dysuria, -hematuria MUSCULOSKELETAL: -back pain, -neck pain SKIN: -rash or skin lesions. HEMATOLOGIC: -easy bruising or bleeding. LYMPHATIC: -swollen, enlarged glands. NEUROLOGICAL: -altered mental status or loss of consciousness, -headache, - neurologic symptoms PSYCHIATRIC: -anxiety, -depression. ALL OTHER SYSTEMS REVIEWED AND NEGATIVE. Physical Exam - Vital signs Vitals: Temp Resp Pulse Ox 102.7 F H 30 H 96 06/26/17 18:51 06/26/17 18:51 06/26/17 18:51 - Notes Notes: PHYSICAL EXAMINATION: GENERAL: Ill-appearing. HEAD: Atraumatic, normocephalic. EYES: Pupils equal round and reactive to light, extraocular movements intact, sclera anicteric, conjunctiva are normal. ENT: nares patent, oropharynx clear without exudates. Moist mucous membranes. NECK: Normal range of motion, supple without lymphadenopathy LUNGS: RLL crackles. No wheezes, rales or rhonchi. HEART: Tachycardic, irregularly irregular rhythm ABDOMEN: Soft, non-tender, normoactive bowel sounds. No guarding, no rebound. No masses appreciated. EXTREMITIES: Normal range of motion, no pitting or edema. No cyanosis. NEUROLOGICAL: Cranial nerves grossly intact. Moving all 4 extremities. SKIN: Warm, Dry, normal turgor, no rashes or lesions noted. Course - Re-evaluation Re-evalutation: Patient appears ill. He has evidence of a right lower lobe pneumonia on chest x -ray with fevers, tachycardia and tachypnea. Patient is in no respiratory distress and satting 90-94% on 2 L nasal cannula. Pt with evidence of RLL infiltrate. Will cover with broad-spectrum antibiotics and clindamycin for possible aspiration pneumonia. Patient also has hypokalemia and hypocalcemia. These were repleted. Spoke to patient about goals of care and he wants to be full code and wants to be intubated if needed. I spoke to him about his advanced liver cancer and that he is on hospice. Attempted to contact his , who is listed as an emergency contact. One phone number will not accept incoming calls and the other phone number I left a message. 06/26/17 21:34 Spoke to his , Jacque Brooks, who is his POA ([phone] or [phone]). She said that patient was doing much better and about to be discharged off of hospice. She also said that patient is full code and would want to be intubated if needed. I spoke to her about his advanced liver cancer and his disease state. She understands and said to do everything today. - Vital Signs Vital signs: Temp Pulse Resp BP Pulse Ox 101.2 F H 24 H 143/83 H 91 L 06/26/17 22:16 06/26/17 22:01 06/26/17 22:16 06/26/17 22:16 - Laboratory Result Diagrams: 06/26/17 19:06 06/26/17 19:06 Laboratory results interpreted by me: 06/26/17 06/26/17 06/26/17 19:06 19:06 19:06 RDW 14.4 H Plt Count 78 L Seg Neuts % (Manual) 92 H Lymphocytes % (Manual) 1 L Abs Neuts (Manual) 8.9 H Abs Lymphs (Manual) 0.1 L PT 16.3 H Potassium 2.6 L* Chloride 119 H Carbon Dioxide 19 L BUN 5 L Creatinine 0.39 L Calcium 5.1 L* Total Bilirubin 1.8 H Direct Bilirubin 0.5 H AST 73 H Total Protein 4.2 L Albumin 1.4 L Urine Protein Urine Blood 06/26/17 20:45 RDW Plt Count Seg Neuts % (Manual) Lymphocytes % (Manual) Abs Neuts (Manual) Abs Lymphs (Manual) PT Potassium Chloride Carbon Dioxide BUN Creatinine Calcium Total Bilirubin Direct Bilirubin AST Total Protein Albumin Urine Protein >=500 H Urine Blood LARGE H - Diagnostic Test Radiology reviewed: Image reviewed, Reports reviewed Radiology results interpreted by me: CXR: patchy airspace disease in right lung base - EKG Interpretation by Me Rate: Tachycardia Rhythm: A.Fib Critical Care Note - Critical Care Note Total time excluding time spent on procedures (mins): 55 Discharge - Discharge Clinical Impression: Atrial fibrillation with RVR, Hypokalemia, Hypocalcemia, Polysubstance abuse Pneumonia Qualifiers: Pneumonia type: due to unspecified organism Laterality: right Lung location: lower lobe of lung Qualified Code(s): J18.1 - Lobar pneumonia, unspecified organism Sepsis Qualifiers: Sepsis type: sepsis due to unspecified organism Qualified Code(s): A41.9 - Sepsis, unspecified organism Condition: Serious Disposition: ADMITTED INPATIENT Admitting Provider: Hospitalist [facility] Unit Admitted: ICU
[2017-06-26] MEDS ORDERED: KETOROLAC TROMETHAMINE INJ/PF 30 MG/1 ML SDV IV ONE (20:07)
[2017-06-26 20:10] LABS: CALCIUM 5.1 mg/dL (8.4-10.2); POTASSIUM 2.6 mmol/L (3.6-5.0)
[2017-06-26] MEDS ORDERED: CALCIUM GLUCONATE 1000 MG/10 ML INJ IV ONE (20:20)
[2017-06-26] MEDS ORDERED: DILTIAZEM HCL/D5W 125 MG/125 ML RTUINJ IV PRN (20:21)
[2017-06-26 21:05] LABS: APPEARANCE,URINE SLIGHTLY-CLOUDY; BILIRUBIN,URINE NEGATIVE (NEGATIVE); GLUCOSE, URINE NEGATIVE (NEGATIVE); KETONES,URINE NEGATIVE (NEGATIVE); LEUKOCYTE ESTERASE,URINE NEGATIVE (NEGATIVE); NITRITE,URINE NEGATIVE (NEGATIVE); PROTEIN,URINE >=500 mg/dL (NEGATIVE); URINE SPECIFIC GRAVITY 1.013; UROBILINOGEN,URINE NEGATIVE mg/dL (<2.0)
[2017-06-26] MEDS: MAGNESIUM SULFATE/D5W 1 GM/100 ML RTUPB IV SCH (21:13)
[2017-06-26] MEDS: POTASSI CL 20 MEQ/50 ML RIDER 20 MEQ/50 ML RTUPB IV SCH (21:14)
[2017-06-26 21:16] LABS: URINE BARBITURATES SCREEN NEGATIVE; URINE METHADONE SCREEN NEGATIVE; URINE OPIATES LOW UNCONFIRMED POSITIVE; URINE PHENCYCLIDINE SCREEN NEGATIVE
[2017-06-26] MEDS ORDERED: IPRATROPIUM/ALBUTEROL 0.5-2.5 MG/3 ML AMPUL NEB ONE ×2 (21:25→21:28)
[2017-06-26] MEDS ORDERED: ALBUTEROL SULFATE 0.083% NEB 2.5 MG/3 ML AMPUL NEB ONE (21:28)
[2017-06-26] MEDS ORDERED: CLINDAMYCIN 600 MG/D5W RTU 600 MG/50 ML RTUPB IV ONE (22:33)
[2017-06-26] MEDS ORDERED: VANCOMYCIN HCL 1 MG in DEXTROSE 5%-WATER 250 ML IV NR (22:45)
[2017-06-26] MEDS ORDERED: MAGNESIUM SULFATE/D5W 1 GM/100 ML RTUPB IV SCH (23:00)
[2017-06-27] MEDS: POTASSI CL 20 MEQ/50 ML RIDER 20 MEQ/50 ML RTUPB IV SCH ×4 (01:02→06:43)
[2017-06-27] MEDS: MAGNESIUM SULFATE/D5W 1 GM/100 ML RTUPB IV SCH (01:03)
[2017-06-27] MEDS: NORMAL SALINE 1000 ML 1,000 ML IV SCH ×2 (01:10→09:30)
[2017-06-27] MEDS ORDERED: IPRATROPIUM/ALBUTEROL 120 PUFF/4 GM MDI IH SCH ×2 (02:00)
[2017-06-27] MEDS: DIAZEPAM 5 MG TABLET PO SCH ×5 (04:54→23:59)
[2017-06-27] MEDS: LACTULOSE SYRUP 20 GM/30 ML UDCUP PO SCH ×5 (04:54→23:08)
[2017-06-27] MEDS ORDERED: METOPROLOL SUCCINATE 50 MG TAB.SR.24H PO SCH (05:30)
[2017-06-27 05:42] LABS: HEMATOCRIT 42.9 % (37.9-51.0); HEMOGLOBIN 14.7 g/dL (13.5-17.0); HGB HCT DIFFERENCE 1.2; MEAN CORPUSCULAR HEMOGLOBIN 32.7 pg (27.0-33.4); MEAN CORPUSCULAR HGB CONC 34.3 g/dL (32.0-36.0); MEAN CORPUSCULAR VOLUME 95 fl (80-97); RED CELL DISTRIBUTION WIDTH 14.3 % (11.5-14.0); WHITE BLOOD COUNT 19.1 10^3/uL (4.0-10.5)
[2017-06-27 05:55] LABS: ALANINE AMINOTRANSFERASE 56 U/L (21-72); ALKALINE PHOSPHATASE 139 U/L (38-126); ANION GAP 6 (5-19); ASPARTATE AMINO TRANSFERASE 94 U/L (17-59); BILIRUBIN,DIRECT 1.2 mg/dL (0.0-0.4); BLOOD UREA NITROGEN 15 mg/dL (7-20); CALCIUM 7.7 mg/dL (8.4-10.2); CARBON DIOXIDE 24 mmol/L (22-30); CHLORIDE 107 mmol/L (98-107); CREATININE RESULT 0.83 mg/dL (0.52-1.25); GLUCOSE 127 mg/dL (75-110); SODIUM 137.3 mmol/L (137-145); TOTAL PROTEIN 5.9 g/dL (6.3-8.2)
[2017-06-27] MEDS ORDERED: POTASSI CL 20 MEQ/50 ML RIDER 20 MEQ/50 ML RTUPB IV SCH (06:00)
[2017-06-27 06:08] LABS: BAND NEUTROPHILS % (MANUAL) 3 % (3-5); BASOPHILS % (MANUAL) 0 % (0-2); EOSINOPHILS % (MANUAL) 2 % (0-6); LYMPHOCYTES % (MANUAL) 3 % (13-45); TOTAL CELLS COUNTED 100
[2017-06-27 06:09] LABS: RBC MORPHOLOGY COMMENT NORMO-CYTIC/CHROMIC; TOXIC GRANULATION 1+; TOXIC VACUOLATION PRESENT
[2017-06-27] MEDS ORDERED: PIPERACILLIN/TAZOBACTAM 4.5 GM VIAL IV ONE (06:09)
[2017-06-27 06:21] LABS: BILIRUBIN,TOTAL 4.5 mg/dL (0.2-1.3); MAGNESIUM 2.3 mg/dL (1.6-2.3); POTASSIUM 4.6 mmol/L (3.6-5.0)
[2017-06-27] MEDS: PIPERACILLIN SODIUM/TAZOBACTAM 4.5 GM in NORMAL SALINE 100 ML IV SCH ×4 (06:46→17:14)
[2017-06-27] MEDS ORDERED: PIPERACILLIN SODIUM/TAZOBACTAM 4.5 GM in NORMAL SALINE 100 ML IV SCH (07:00)
--- NOTE | 2017-06-27 07:16 | PDOC H&P ---
History of Present Illness Admission Date/PCP: 06/26/17 22:40 Patient complains of: Shortness of breath History of Present Illness: YARI TAMAYO is a 61 year old male with a past medical history of hospice secondary to hepatitis C, alcoholic cirrhosis, hepatic encephalopathy, COPD, atrial fibrillation ongoing alcohol, tobacco, and substance abuse. He was brought to the emergency room by his ex- for shortness of breath stating he has rescinded hospice care wishing treatment for shortness of breath and now full CODE STATUS. Patient himself is encephalopathic and unable to answer questions accurately, appearing intoxicated with tox screen positive for alcohol , cocaine, opiates and benzodiazepines. Patient has had approximately 48 hours of nonproductive cough shortness of breath, he denies chest pain nausea vomiting diaphoresis. Chest x-ray in the emergency room suggests right lower lobe pneumonia patient denies vomiting or aspiration. In addition to thrombocytopenia, severe malnutrition, hypomagnesemia, hypo-kalemia and A. fib with RVR. He started on IV Cardizem, empiric antibiotics, BiPAP and referred to the hospitalist for admission. Past Medical History Cardiac Medical History: Reports: Atrial Fibrillation Pulmonary Medical History: Reports: Asthma, Chronic Obstructive Pulmonary Disease (COPD) Neurological Medical History: Reports: Other GI Medical History: Reports: Cirrhosis, Hepatitis - Hepatitis C, Other GI History Note: Hepatitis C, esophageal varices Psychiatric Medical History: Reports: Substance Abuse, Tobacco Dependency, Other Psychiatric History Note: Multifactorial encephalopathy Hematology: Reports: Other Past Surgical History Past Surgical History: Reports: Cholecystectomy, Orthopedic Surgery - left foot/ leg 2007 Social History Information Source: Patient, POA - Power of Support Group Manager, [facility] Records Lives with: Friend Smoking Status: Current Every Day Smoker Frequency of Alcohol Use: Heavy Hx Recreational Drug Use: No Drugs: Cocaine Hx Prescription Drug Abuse: No Family History Family History: CAD - Father, Malignancy - Mother Parental Family History Reviewed: Yes Children Family History Reviewed: Yes Sibling(s) Family History Reviewed.: Yes Medication/Allergy Home Medications: Famotidine [Pepcid 20 mg Tablet] 20 mg PO Q12 #60 tablet 11/08/16 Diazepam [Valium 5 mg Tablet] 5 mg PO Q6 #4 tablet 11/14/16 Folic Acid [Folvite 1 mg Tablet] 1 mg PO DAILY #90 tablet 11/14/16 Furosemide [Lasix 20 mg Tablet] 60 mg PO BID #120 tablet 11/14/16 Ipratropium/Albuterol Sulfate [Combivent Respimat 4 gm Mdi] 1 puff IH Q6 #1 aer.w.adap 11/14/16 Lactulose [Cephulac Syrup 20 gm/30 ml Udcup] 20 gm PO Q6 30 Days udc 11/14/16 Levofloxacin [Levaquin 500 mg Tablet] 500 mg PO DAILY tablet 11/14/16 Lisinopril [Prinivil 10 mg Tablet] 10 mg PO DAILY #30 tablet 11/14/16 Magnesium Oxide [Mag-Ox 400 mg Tablet] 800 mg PO TID #30 tablet 11/14/16 Metoprolol Succinate [Toprol Xl 50 mg Tab.sr] 50 mg PO Q12 #60 tab.sr.24h Nicotine [Nicoderm 14 mg/24 Hr Transdermal Patch] 1 each TD DAILYP PRN #30 patch.td24 11/14/16 Spironolactone [Aldactone 25 mg Tablet] 50 mg PO DAILY #60 tablet 11/14/16 Thiamine HCl [Thiamine 100 mg Tablet] 100 mg PO DAILY #30 tablet 11/14/16 Levofloxacin [Levaquin 750 mg Tablet] 750 mg PO DAILY #5 tablet 03/30/17 Prednisone [Deltasone 20 mg Tablet] 3 tab PO DAILY 5 Days tablet 03/30/17 Baclofen [Baclofen 10 mg Tablet] 10 mg PO TID 06/27/17 Diltiazem HCl [Diltiazem ER] 240 mg PO 06/27/17 Lorazepam 1 mg PO Q8 PRN 06/27/17 Meloxicam 7.5 mg PO 06/27/17 Morphine Sulfate 15 mg PO 06/27/17 Nadolol [Corgard 40 mg Tablet] 40 mg PO 06/27/17 Tetrahydrozoline HCl [Visine] 1 drop 06/27/17 Allergies/Adverse Reactions: tramadol Allergy (Verified 11/07/16 04:46) Review of Systems ROS unobtainable: Due to mental status - Unobtainable Physical Exam Vital Signs: Temp Pulse Resp BP Pulse Ox 99 F 76 37 H 126/67 H 98 06/27/17 03:45 06/27/17 06:00 06/27/17 04:27 06/27/17 06:00 06/27/17 06:00 Intake & Output 06/25/17 06/26/17 06/27/17 11:59 11:59 11:59 Intake Total 1140 Balance 1140 Weight 98.7 kg General appearance: PRESENT: disheveled, severe distress. ABSENT: well- developed, well-nourished Head exam: PRESENT: atraumatic, normocephalic Eye exam: PRESENT: conjunctiva pink, EOMI, PERRLA. ABSENT: scleral icterus Ear exam: PRESENT: normal external ear exam Mouth exam: PRESENT: moist, tongue midline Neck exam: ABSENT: carotid bruit, JVD, lymphadenopathy, thyromegaly Respiratory exam: PRESENT: accessory muscle use, crackles, decreased breath sounds, prolonged expiratory phas, retraction, rhonchi, tachypnea Cardiovascular exam: PRESENT: irregular rhythm. ABSENT: diastolic murmur, rubs , systolic murmur Pulses: PRESENT: normal dorsalis pedis pul Vascular exam: PRESENT: normal capillary refill GI/Abdominal exam: PRESENT: ascites, diminished bowel sounds, soft. ABSENT: distended, guarding, tenderness Rectal exam: PRESENT: deferred Extremities exam: PRESENT: +1 edema. ABSENT: calf tenderness, clubbing Neurological exam: PRESENT: altered, CN II-XII grossly intact Psychiatric exam: PRESENT: unusual affect Skin exam: PRESENT: dry, intact, warm. ABSENT: cyanosis, rash Results Laboratory Results: 06/27/17 05:08 06/27/17 05:08 06/26/17 06/27/17 06/27/17 23:31 05:08 05:08 WBC 19.1 H RBC 4.50 Hgb 14.7 Hct 42.9 MCV 95 MCH 32.7 MCHC 34.3 RDW 14.3 H Plt Count 77 L Seg Neutrophils % Not Reportable Lymphocytes % Not Reportable Monocytes % Not Reportable Eosinophils % Not Reportable Basophils % Not Reportable Absolute Neutrophils Not Reportable Absolute Lymphocytes Not Reportable Absolute Monocytes Not Reportable Absolute Eosinophils Not Reportable Absolute Basophils Not Reportable Sodium 137.3 Potassium 4.6 D Chloride 107 Carbon Dioxide 24 Anion Gap 6 BUN 15 Creatinine 0.83 Est GFR ( Amer) > 60 Est GFR (Non-Af Amer) > 60 Glucose 127 H Calcium 7.7 L Magnesium 2.3 D Total Bilirubin 4.5 H D AST 94 H ALT 56 Alkaline Phosphatase 139 H Total Protein 5.9 L Albumin 2.0 L Prealbumin 6.1 L Impressions: Chest X-Ray 06/26/17 18:59 IMPRESSION: Patchy airspace disease in the right lung base. Assessment & Plan - Diagnosis (1) Pneumonia Qualifiers: Pneumonia type: due to unspecified organism Laterality: right Lung location: lower lobe of lung Qualified Code(s): J18.1 - Lobar pneumonia, unspecified organism Is this a current diagnosis for this admission?: Yes Plan: Pneumonia care set broad-spectrum antibiotics initiated, BiPAP, albuterol and Atrovent. Follow-up CBC and culture (2) Atrial fibrillation with RVR Is this a current diagnosis for this admission?: Yes Plan: IV Cardizem transition to p.o. as tolerated. Clearly complicated by COPD exacerbation polysubstance abuse. (3) Hypocalcemia Is this a current diagnosis for this admission?: Yes Plan: Secondary to acute on chronic illness and malnutrition replete and recheck chemistry (4) Hypokalemia Is this a current diagnosis for this admission?: Yes Plan: Secondary to acute on chronic illness replete magnesium and potassium, reevaluate chemistry (5) Polysubstance abuse Is this a current diagnosis for this admission?: Yes Plan: Cocaine positive avoid beta nikky, benzodiazepine use, avoid withdrawal. Given hospice status and toxic screen result I have concern for diversion of opiates and benzodiazepines. (6) Sepsis Qualifiers: Sepsis type: sepsis due to unspecified organism Qualified Code(s): A41.9 - Sepsis, unspecified organism Is this a current diagnosis for this admission?: Yes Plan: Secondary to #1, IV fluid challenge follow lactic acid. (7) Alcohol abuse Is this a current diagnosis for this admission?: Yes Plan: Complicated by alcoholic and hepatitis C cirrhosis, history of alcohol withdrawal. Thiamine, folate and Valium ordered (8) Cirrhosis Qualifiers: Hepatic cirrhosis type: alcoholic cirrhosis Ascites presence: with ascites Qualified Code(s): K70.31 - Alcoholic cirrhosis of liver with ascites Is this a current diagnosis for this admission?: Yes Plan: No evidence for SBP. Complicated by malnutrition and coagulopathy, dietitian consult versus hospice (9) Encephalopathy Is this a current diagnosis for this admission?: Yes Plan: Multifactorial including acute intoxication, lactulose ordered and supportive measures with fall precaution. - Time Time Spent: Greater than 70 Minutes - Inpatient Certification Medical Necessity: Need Close Monitoring Due to Risk of Patient Decompensation
--- NOTE | 2017-06-27 07:34 | EKG REPORT ---
SEVERITY:- ABNORMAL ECG - ATRIAL FIBRILLATION WITH RAPID V-RATE NONSPECIFIC T ABNORMALITIES, LATERAL LEADS : Confirmed by: Cabrera Olguin MD 27-Jun-2017 07:33:11
[2017-06-27] MEDS: MAGNESIUM OXIDE 400 MG TABLET PO SCH ×3 (09:26→17:10)
[2017-06-27] MEDS: GUAIFENESIN 600 MG TABLET.SA PO SCH ×2 (09:26→22:22)
[2017-06-27] MEDS: THIAMINE HCL 100 MG TABLET PO SCH (09:27)
[2017-06-27] MEDS: FOLIC ACID 1 MG TABLET PO SCH (09:27)
[2017-06-27] MEDS: DILTIAZEM HCL 180 MG CAPSULE.CR PO SCH ×2 (09:27→22:21)
[2017-06-27] MEDS ORDERED: PREDNISONE 20 MG TABLET PO SCH (10:00)
[2017-06-27] MEDS: VANCOMYCIN HCL 1,250 MG in DEXTROSE 5%-WATER 250 ML IV SCH ×2 (10:28→17:14)
[2017-06-27] MEDS ORDERED: TETRAHYDROZOLINE HCL 0.05% OPH SOLN 15 ML OU PRN (12:01)
[2017-06-27] MEDS ORDERED: BACLOFEN 10 MG TABLET PO PRN (12:01)
[2017-06-27] MEDS ORDERED: LORAZEPAM 1 MG TABLET PO PRN (12:01)
--- NOTE | 2017-06-27 12:08 | PDOC PROGRESS REPORT ---
Subjective Progress Note for:: 06/27/17 Subjective:: Alert and oriented 3. Physical Exam Vital Signs: Temp Pulse Resp BP Pulse Ox 99 F 93 37 H 124/67 98 06/27/17 03:45 06/27/17 10:00 06/27/17 04:27 06/27/17 10:00 06/27/17 08:01 Intake & Output 06/26/17 06/27/17 06/28/17 06:59 06:59 06:59 Intake Total 1140 Output Total 125 Balance 1015 Weight 98.7 kg General appearance: PRESENT: no acute distress Eye exam: PRESENT: conjunctiva pink. ABSENT: scleral icterus Mouth exam: PRESENT: moist, tongue midline Neck exam: ABSENT: JVD Respiratory exam: PRESENT: rhonchi - Coarse rhonchi. ABSENT: rales, wheezes Cardiovascular exam: PRESENT: RRR. ABSENT: diastolic murmur, rubs, systolic murmur GI/Abdominal exam: PRESENT: normal bowel sounds, soft. ABSENT: distended, guarding, mass, organolmegaly, rebound, tenderness Extremities exam: ABSENT: calf tenderness, clubbing, pedal edema Neurological exam: PRESENT: alert, awake, oriented to person, oriented to place , oriented to time, oriented to situation, CN II-XII grossly intact. ABSENT: motor sensory deficit Psychiatric exam: PRESENT: appropriate affect Skin exam: PRESENT: dry, intact, warm. ABSENT: cyanosis, rash Results Laboratory Results: 06/27/17 05:08 06/27/17 05:08 06/26/17 06/27/17 06/27/17 23:31 05:08 05:08 WBC 19.1 H RBC 4.50 Hgb 14.7 Hct 42.9 MCV 95 MCH 32.7 MCHC 34.3 RDW 14.3 H Plt Count 77 L Seg Neutrophils % Not Reportable Lymphocytes % Not Reportable Monocytes % Not Reportable Eosinophils % Not Reportable Basophils % Not Reportable Absolute Neutrophils Not Reportable Absolute Lymphocytes Not Reportable Absolute Monocytes Not Reportable Absolute Eosinophils Not Reportable Absolute Basophils Not Reportable Sodium 137.3 Potassium 4.6 D Chloride 107 Carbon Dioxide 24 Anion Gap 6 BUN 15 Creatinine 0.83 Est GFR ( Amer) > 60 Est GFR (Non-Af Amer) > 60 Glucose 127 H Calcium 7.7 L Magnesium 2.3 D Total Bilirubin 4.5 H D AST 94 H ALT 56 Alkaline Phosphatase 139 H Total Protein 5.9 L Albumin 2.0 L Prealbumin 6.1 L Impressions: Chest X-Ray 06/26/17 18:59 IMPRESSION: Patchy airspace disease in the right lung base. Assessment & Plan - Diagnosis (1) Pneumonia Qualifiers: Pneumonia type: due to unspecified organism Laterality: right Lung location: lower lobe of lung Qualified Code(s): J18.1 - Lobar pneumonia, unspecified organism Is this a current diagnosis for this admission?: Yes Plan: Continue with vancomycin and Zosyn. (2) Atrial fibrillation with RVR Is this a current diagnosis for this admission?: Yes Plan: Patient is rate controlled. Will DC the diltiazem drip and continue with the p.o. diltiazem. (3) COPD (chronic obstructive pulmonary disease) Qualifiers: COPD type: COPD with acute exacerbation Qualified Code(s): J44.1 - Chronic obstructive pulmonary disease with (acute) exacerbation Is this a current diagnosis for this admission?: Yes (4) Cirrhosis Qualifiers: Hepatic cirrhosis type: alcoholic cirrhosis Ascites presence: with ascites Qualified Code(s): K70.31 - Alcoholic cirrhosis of liver with ascites Is this a current diagnosis for this admission?: Yes (5) Hepatitis C Qualifiers: Viral hepatitis chronicity: chronic Hepatic coma status: without hepatic coma Qualified Code(s): B18.2 - Chronic viral hepatitis C Is this a current diagnosis for this admission?: Yes (6) DNR (do not resuscitate) Is this a current diagnosis for this admission?: Yes Plan: Patient requests to be a DO NOT RESUSCITATE. He is still followed by hospice - Time Time Spent with patient: 25-34 minutes - Inpatient Certification Medical Necessity: Need for IV Antibiotics
[2017-06-27] MEDS: IPRATROPIUM/ALBUTEROL 120 PUFF/4 GM MDI IH SCH ×3 (13:12→23:59)
[2017-06-27] MEDS: MORPHINE SULFATE IR 15 MG TABLET PO SCH (17:09)
[2017-06-27] MEDS ORDERED: ONDANSETRON HCL INJ/PF 4 MG/2 ML SDV ONE (17:21)
[2017-06-27] MEDS ORDERED: ONDANSETRON HCL INJ/PF 4 MG/2 ML SDV IV PRN (17:31)
[2017-06-27] MEDS ORDERED: LACTULOSE 20 GM PO SCH (18:00)
[2017-06-28] MEDS: PIPERACILLIN SODIUM/TAZOBACTAM 4.5 GM in NORMAL SALINE 100 ML IV SCH ×2 (00:03→05:33)
[2017-06-28] MEDS: VANCOMYCIN HCL 1,250 MG in DEXTROSE 5%-WATER 250 ML IV SCH ×2 (01:46→09:58)
[2017-06-28] MEDS: LACTULOSE SYRUP 20 GM/30 ML UDCUP PO SCH (05:24)
[2017-06-28] MEDS: MORPHINE SULFATE IR 15 MG TABLET PO SCH ×2 (05:33)
[2017-06-28] MEDS: IPRATROPIUM/ALBUTEROL 120 PUFF/4 GM MDI IH SCH (05:33)
[2017-06-28] MEDS: DIAZEPAM 5 MG TABLET PO SCH (05:34)
[2017-06-28 06:25] LABS: ABSOLUTE EOSINOPHILS # (AUTO) 0.2 10^3/uL (0.0-0.6); ABSOLUTE LYMPHOCYTES (AUTO) 0.7 10^3/uL (0.5-4.7); ABSOLUTE NEUT (AUTO) 10.3 10^3/uL (1.7-8.2); BASOPHILS % (AUTO) 0.3 % (0-2); EOSINOPHILS % (AUTO) 1.8 % (0-6); HEMATOCRIT 40.3 % (37.9-51.0); HEMOGLOBIN 14.1 g/dL (13.5-17.0); LYMPHOCYTES % (AUTO) 5.4 % (13-45); MEAN CORPUSCULAR VOLUME 94 fl (80-97); MONOCYTES % (AUTO) 7.9 % (3-13); RED BLOOD COUNT 4.28 10^6/uL (4.35-5.55); RED CELL DISTRIBUTION WIDTH 14.4 % (11.5-14.0); SEGMENTED NEUTROPHILS % (AUTO) 84.6 % (42-78); WHITE BLOOD COUNT 12.2 10^3/uL (4.0-10.5)
[2017-06-28 06:35] LABS: ALANINE AMINOTRANSFERASE 53 U/L (21-72); ALBUMIN 2.1 g/dL (3.5-5.0); ALKALINE PHOSPHATASE 124 U/L (38-126); ASPARTATE AMINO TRANSFERASE 64 U/L (17-59); BILIRUBIN,DIRECT 0.7 mg/dL (0.0-0.4); BILIRUBIN,TOTAL 2.3 mg/dL (0.2-1.3); BLOOD UREA NITROGEN 23 mg/dL (7-20); CALCIUM 7.9 mg/dL (8.4-10.2); CARBON DIOXIDE 28 mmol/L (22-30); CHLORIDE 104 mmol/L (98-107); CREATININE RESULT 0.76 mg/dL (0.52-1.25); GLUCOSE 111 mg/dL (75-110); POTASSIUM 4.2 mmol/L (3.6-5.0); TOTAL PROTEIN 6.1 g/dL (6.3-8.2)
[2017-06-28 06:48] LABS: SODIUM 134.4 mmol/L (137-145)
[2017-06-28 06:52] LABS: ANION GAP 2 (5-19)
[2017-06-28 08:54] VITALS: BP 127/67
--- NOTE | 2017-06-28 09:24 | PDOC DISCHARGE SUMMARY ---
General - Admit/Disc Date/PCP Admission Date/Primary Care Provider: 06/26/17 22:40 Discharge Date: 06/28/17 - Discharge Diagnosis (1) Pneumonia Is this a current diagnosis for this admission?: Yes Summary: The patient's has right lower lobe pneumonia. One blood cultures positive for both gram-positive and gram-negative bacilli. He is being sent home on 10 days of Augmentin. (2) Atrial fibrillation with RVR Is this a current diagnosis for this admission?: Yes (3) COPD (chronic obstructive pulmonary disease) Is this a current diagnosis for this admission?: Yes (4) Cirrhosis Is this a current diagnosis for this admission?: Yes Summary: Patient is on hospice for his end-stage liver disease. (5) Hepatitis C Is this a current diagnosis for this admission?: Yes (6) DNR (do not resuscitate) Is this a current diagnosis for this admission?: Yes Summary: Patient is hospice care. - Additional Information Discharge Diet: Cardiac Discharge Activity: Activity As Tolerated Home Medications: Baclofen [Baclofen 10 mg Tablet] 10 mg PO Q8HP PRN 06/27/17 Diltiazem HCl [Diltiazem 24Hr ER] 240 mg PO DAILY 06/27/17 Lactulose 20 gm PO Q6 06/27/17 Lorazepam [Ativan 1 mg Tablet] 1 mg PO Q8HP PRN 06/27/17 Meloxicam [Mobic 7.5 mg Tablet] 7.5 mg PO DAILY 06/27/17 Morphine Sulfate [Morphine Ir 15 mg Tablet] 15 mg PO Q6 06/27/17 Multivitamin [Tab-A-Dylan] 1 each PO DAILY 06/27/17 Nadolol [Corgard 40 mg Tablet] 40 mg PO DAILY 06/27/17 Tetrahydrozoline HCl [Visine 0.05% Oph Soln 15 ml] 2 drop OU DAILYP PRN Amox Tr/Potassium Clavulanate [Augmentin 875-125 mg Tablet] 1 tab PO BID #20 tablet 06/28/17 Magnesium Oxide [Mag-Ox 400 mg Tablet] 800 mg PO TID tablet 06/28/17 History of Present Illness History of Present Illness: YARI TAMAYO is a 61 year old male with a history of hepatitis C cirrhosis and encephalopathy who presents with shortness of breath. Patient was found to have a right lower lobe pneumonia. He was intoxicated when he presented as well as his was intoxicated. The patient is admitted for treatment of pneumonia. He had been enrolled in hospice prior to this presentation. Hospital Course Hospital Course: 61-year-old gentleman who is a hospice patient who presented with shortness of breath and was found to have a right lower lobe pneumonia. The patient was started on broad-spectrum antibiotics of vancomycin and Zosyn. The patient improved quickly and the decision was made to discharge him home. He will complete a 10 day course of Augmentin. As I was doing the patient's discharge orders I received a call from microbiology that he had positive blood culture 1. He is growing both gram-positive and gram-negative. Is not clear whether these are truly pathogens or contaminant. The patient however clinically has dramatically improved and we will go ahead and sent home with the Augmentin. The patient was hospice prior to this admission however he wanted treatment for this pneumonia. He is sent home again with hospice. The patient's liver disease was stable during this hospitalization. Physical Exam Vital Signs: Temp Pulse Resp BP Pulse Ox 98.2 F 95 16 127/67 H 91 L 06/28/17 08:52 06/28/17 08:52 06/28/17 08:52 06/28/17 08:52 06/28/17 08:52 Intake & Output 06/27/17 06/28/17 06/29/17 06:59 06:59 06:59 Intake Total 1140 3464 Output Total 125 1000 Balance 1015 2464 Weight 98.7 kg 99.3 kg General appearance: PRESENT: no acute distress Eye exam: PRESENT: conjunctiva pink. ABSENT: scleral icterus Mouth exam: PRESENT: moist, tongue midline Neck exam: ABSENT: JVD Respiratory exam: PRESENT: clear to auscultation feli. ABSENT: rales, rhonchi, wheezes Cardiovascular exam: PRESENT: RRR. ABSENT: diastolic murmur, rubs, systolic murmur Vascular exam: PRESENT: normal capillary refill GI/Abdominal exam: PRESENT: normal bowel sounds, soft. ABSENT: distended, guarding, mass, organolmegaly, rebound, tenderness Extremities exam: ABSENT: calf tenderness, clubbing, pedal edema Neurological exam: PRESENT: alert, awake, oriented to person, oriented to place , oriented to time, oriented to situation, CN II-XII grossly intact. ABSENT: motor sensory deficit Psychiatric exam: PRESENT: appropriate affect Skin exam: PRESENT: dry, intact, warm. ABSENT: cyanosis, rash Results Laboratory Results: 06/28/17 05:31 06/28/17 05:31 06/28/17 06/28/17 05:31 05:31 WBC 12.2 H RBC 4.28 L Hgb 14.1 Hct 40.3 MCV 94 MCH 33.0 MCHC 35.0 RDW 14.4 H Plt Count 76 L Seg Neutrophils % 84.6 H Lymphocytes % 5.4 L Monocytes % 7.9 Eosinophils % 1.8 Basophils % 0.3 Absolute Neutrophils 10.3 H Absolute Lymphocytes 0.7 Absolute Monocytes 1.0 Absolute Eosinophils 0.2 Absolute Basophils 0.0 Sodium 134.4 L Potassium 4.2 Chloride 104 Carbon Dioxide 28 Anion Gap 2 L BUN 23 H Creatinine 0.76 Est GFR ( Amer) > 60 Est GFR (Non-Af Amer) > 60 Glucose 111 H Calcium 7.9 L Total Bilirubin 2.3 H AST 64 H ALT 53 Alkaline Phosphatase 124 Total Protein 6.1 L Albumin 2.1 L Impressions: Chest X-Ray 06/26/17 18:59 IMPRESSION: Patchy airspace disease in the right lung base. Qualifiers PATEINT BEING DISCHARGED WITH ANY OF THE FOLLOWING DIAGNOSIS?: No Plan Discharge Plan: We will discharge home with hospice. Follow with primary care in 1-2 weeks. Time Spent: Greater than 30 Minutes
[2017-06-28] MEDS: MAGNESIUM OXIDE 400 MG TABLET PO SCH (09:26)
[2017-06-28] MEDS: GUAIFENESIN 600 MG TABLET.SA PO SCH (09:26)
[2017-06-28] MEDS: THIAMINE HCL 100 MG TABLET PO SCH (09:26)
[2017-06-28] MEDS: FOLIC ACID 1 MG TABLET PO SCH (09:26)
[2017-06-28] MEDS: DILTIAZEM HCL 180 MG CAPSULE.CR PO SCH (09:58)
[2017-06-28] MEDS ORDERED: (PENDING PHARMACY ID) (Diltiazem Hcl [Diltiazem 24hr Er] 240 MG) PO SCH (10:00)
[2017-06-28] MEDS ORDERED: MELOXICAM 7.5 MG TABLET PO SCH (10:00)
[2017-06-28] MEDS ORDERED: NADOLOL 40 MG TABLET PO SCH (10:00)
[2017-06-28] MEDS ORDERED: DILTIAZEM HCL 240 MG CAPSULE.CR PO SCH (10:00)
[2017-06-28] MEDS ORDERED: MULTIVITAMIN TABLET PO SCH (10:00)
== END 2017-06-28 10:24 | disposition hospice, inpatient (51) | DRG 871 ==
LOC: ER 18:38 → EH 22:40 → 3S 06-27 03:20
PROVIDERS: ADMIT Internal Medicine; ATTEND Internal Medicine
DX: A41.9 Sepsis, unspecified organism (principal); J18.1 Lobar pneumonia, unspecified organism; E43 Unspecified severe protein-calorie malnutrition; J44.1 Chronic obstructive pulmonary disease with (acute) exacerbation; K70.31 Alcoholic cirrhosis of liver with ascites; K70.40 Alcoholic hepatic failure without coma; B18.2 Chronic viral hepatitis C; I48.91 Unspecified atrial fibrillation; Z66 Do not resuscitate; F10.229 Alcohol dependence with intoxication, unspecified; E83.42 Hypomagnesemia; E87.6 Hypokalemia; E83.51 Hypocalcemia; F14.10 Cocaine abuse, uncomplicated; Y90.9 Presence of alcohol in blood, level not specified; F17.200 Nicotine dependence, unspecified, uncomplicated; D69.59 Other secondary thrombocytopenia; Z68.32 Body mass index [BMI] 32.0-32.9, adult; Z90.49 Acquired absence of other specified parts of digestive tract; Z82.49 Family history of ischemic heart disease and other diseases of the circulatory system; Z80.9 Family history of malignant neoplasm, unspecified; Z79.899 Other long term (current) drug therapy
CPT/HCPCS: 36415; 71010; 80053; 80307; 81001; 82140; 82550; 82803; 83605; 83690; 83735; 84134; 84484; 85025; 85610; 85730; 87040; 87077; 87086; 87186; 93005; 93010; 94640; 94660; 96365; 96368; 99291; J0610; J1885; J2405; J2543; J3370; J3475; J3480; J3490; J7030; J7060; J7620

== ENCOUNTER 2017-08-04 11:31 | Emergency (ER) | payer OTHER, MEDICARE ==
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
[2017-08-04 13:19] LABS: ABSOLUTE BASOPHILS # (AUTO) 0.1 10^3/uL (0.0-0.2); ABSOLUTE EOSINOPHILS # (AUTO) 0.2 10^3/uL (0.0-0.6); ABSOLUTE LYMPHOCYTES (AUTO) 0.9 10^3/uL (0.5-4.7); ABSOLUTE MONOCYTES (AUTO) 0.6 10^3/uL (0.1-1.4); ABSOLUTE NEUT (AUTO) 3.1 10^3/uL (1.7-8.2); BASOPHILS % (AUTO) 1.1 % (0-2); EOSINOPHILS % (AUTO) 4.8 % (0-6); HEMOGLOBIN 15.5 g/dL (13.5-17.0); HGB HCT DIFFERENCE 2.5; LYMPHOCYTES % (AUTO) 18.7 % (13-45); MEAN CORPUSCULAR HEMOGLOBIN 32.2 pg (27.0-33.4); MEAN CORPUSCULAR HGB CONC 35.1 g/dL (32.0-36.0); MEAN CORPUSCULAR VOLUME 92 fl (80-97); MONOCYTES % (AUTO) 11.5 % (3-13); RED CELL DISTRIBUTION WIDTH 14.7 % (11.5-14.0); SEGMENTED NEUTROPHILS % (AUTO) 63.9 % (42-78); WHITE BLOOD COUNT 4.8 10^3/uL (4.0-10.5)
[2017-08-04 13:31] LABS: APPEARANCE,URINE CLEAR; BILIRUBIN,URINE NEGATIVE (NEGATIVE); GLUCOSE, URINE NEGATIVE (NEGATIVE); KETONES,URINE NEGATIVE (NEGATIVE); LEUKOCYTE ESTERASE,URINE NEGATIVE (NEGATIVE); NITRITE,URINE NEGATIVE (NEGATIVE); PROTEIN,URINE >=500 mg/dL (NEGATIVE); URINE SPECIFIC GRAVITY 1.017
[2017-08-04 13:41] LABS: URINE BARBITURATES SCREEN NEGATIVE; URINE METHADONE SCREEN NEGATIVE; URINE OPIATES LOW UNCONFIRMED POSITIVE; URINE PHENCYCLIDINE SCREEN NEGATIVE
[2017-08-04 13:42] LABS: ALANINE AMINOTRANSFERASE 76 U/L (21-72); ALBUMIN 2.5 g/dL (3.5-5.0); ALKALINE PHOSPHATASE 212 U/L (38-126); ASPARTATE AMINO TRANSFERASE 118 U/L (17-59); BILIRUBIN,DIRECT 0.7 mg/dL (0.0-0.4); BILIRUBIN,TOTAL 2.1 mg/dL (0.2-1.3); BLOOD UREA NITROGEN 12 mg/dL (7-20); CALCIUM 8.5 mg/dL (8.4-10.2); CREATININE RESULT 0.61 mg/dL (0.52-1.25); GLUCOSE 94 mg/dL (75-110); POTASSIUM 4.2 mmol/L (3.6-5.0)
[2017-08-04 13:45] LABS: ALCOHOL < 10 mg/dL (NONE DETECTED)
[2017-08-04 13:52] LABS: CARBON DIOXIDE 30 mmol/L (22-30); CHLORIDE 104 mmol/L (98-107); SODIUM 138.4 mmol/L (137-145)
[2017-08-04 13:54] LABS: ANION GAP 4 (5-19)
--- NOTE | 2017-08-04 13:55 | RADIOLOGY REPORT (SQ) ---
EXAM DESCRIPTION: ANKLE LEFT COMPLETE COMPLETED DATE/TIME: 08/04/2017 1:42 pm REASON FOR STUDY: pain/swelling COMPARISON: 10/24/2016. NUMBER OF VIEWS: Three views. TECHNIQUE: AP, lateral, and oblique radiographic images acquired of the left ankle. LIMITATIONS: None. FINDINGS: MINERALIZATION: Normal. BONES: No acute fracture or dislocation. Old fracture of the distal tibia. Old fracture of the dist al fibula with hardware. No worrisome bone lesions. JOINTS: No effusions. SOFT TISSUES: Generalized soft tissue swelling. No foreign body. OTHER: No other significant finding. IMPRESSION: SOFT TISSUE SWELLING. OLD FRACTURES OF THE DISTAL TIBIA AND FIBULA WITH HARDWARE IN THE DISTAL FIBULA, UNCHANGED. NO ACUTE BONY FINDINGS. TECHNICAL DOCUMENTATION: JOB ID: [id number] [employer]- All Rights Reserved
--- NOTE | 2017-08-04 13:57 | RADIOLOGY REPORT (SQ) ---
EXAM DESCRIPTION: FOOT LEFT COMPLETE COMPLETED DATE/TIME: 08/04/2017 1:42 pm REASON FOR STUDY: pain/swelling COMPARISON: None. NUMBER OF VIEWS: Three views. TECHNIQUE: AP, lateral and oblique without weight bearing radiographic images acquired of the left f oot. LIMITATIONS: None. FINDINGS: MINERALIZATION: Normal. BONES: No acute fracture or dislocation. Mild chronic changes involving the distal 1st metatarsal. No worrisome bone lesions. No significant osteophytes. JOINTS: No erosions. No miah-articular osteopenia. No chondrocalcinosis. SOFT TISSUES: No swelling. No calcifications. OTHER: No other significant finding. IMPRESSION: CHRONIC CHANGES INVOLVING THE DISTAL 1ST METATARSAL. NO ACUTE FINDINGS. TECHNICAL DOCUMENTATION: JOB ID: [id number] [employer]- All Rights Reserved
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
[2017-08-04] MEDS ORDERED: CEPHALEXIN 500 MG CAPSULE PO ONE (14:31)
[2017-08-04] MEDS ORDERED: SULFAMETHOXAZOLE/TRIMETHOPRIM 800-160 MG TABLET PO ONE (14:31)
[2017-08-04] MEDS ORDERED: HYDROCODONE/ACETAMINOPHEN 5-325 MG TABLET PO ONE (14:35)
[2017-08-04] MEDS ORDERED: DIPH/PERTUSS(ACELL)/TETANUS VAC/PF 0.5 ML SYR (>=10YO) IM ONE (14:37)
[2017-08-04] MEDS ORDERED: OXYCODONE HCL IR 5 MG TABLET PO ONE (14:56)
[2017-08-04 15:19] VITALS: BP 178/104
== END 2017-08-04 15:16 | disposition home or self-care (01) ==
LOC: ER 11:31
DX: L03.032 Cellulitis of left toe (principal); B18.2 Chronic viral hepatitis C; I10 Essential (primary) hypertension; F17.210 Nicotine dependence, cigarettes, uncomplicated; I48.91 Unspecified atrial fibrillation; J44.9 Chronic obstructive pulmonary disease, unspecified; J45.909 Unspecified asthma, uncomplicated; Z90.49 Acquired absence of other specified parts of digestive tract; Z23 Encounter for immunization
CPT/HCPCS: 36415; 80053; 80307; 81001; 85025; 90471; 90715; 99284